=== PATIENT | male | born 1960 | race Caucasian/White ===

== ENCOUNTER 2018-12-30 03:27 | Observation (INO) | payer OTHER, SELFPAY ==
[2018-12-30] VITALS (17 sets, daily range): BP systolic 114–158; BP diastolic 80–103; PULSE 76–157; RESP 15–28; TEMP 36.5–36.9; O2SAT 92–98; BMI 45.7; BMI 45.3; BMI 45.4
--- NOTE | 2018-12-30 03:30 | EKG12_ITS ---
Test Reason : CP Blood Pressure : / mmHG Vent. Rate : 146 BPM Atrial Rate : 156 BPM P-R Int : 000 ms QRS Dur : 096 ms QT Int : 312 ms P-R-T Axes : 000 -49 073 degrees QTc Int : 486 ms Atrial fibrillation with rapid ventricular response Incomplete right bundle branch block Left anterior fascicular block Minimal voltage criteria for LVH, may be normal variant Abnormal ECG Confirmed by HIRA ESPINOZA, CRISTIAN ([id number]), editor greeting card MARQUIS SNOW ([id number]) on 01/02/2019 9:08:11 AM Referred By: Craig Anaya Confirmed By:CRISTIAN INIGUEZ MD
--- NOTE | 2018-12-30 03:30 | RAD_ITS ---
HISTORY: CPChest PainRAD - Chest EXAM: XR Chest 1 View COMPARISON: None FINDINGS: LINES/DEVICES: None. LUNGS: No consolidation, edema or effusion. No pneumothorax. MEDIASTINUM AND CARDIOVASCULAR STRUCTURES: Cardiac silhouette not enlarged. Central airways and mediastinal contour are unremarkable. BONES AND SOFT TISSUES: Unremarkable. RAD/Chest 1 View (Portable) IMPRESSION: No radiographic evidence of acute cardiopulmonary disease. at 0413 Reported and signed by: Arjun Rosas MD Electronically Signed: Arjun Rosas, at 4:12 EDT Tel , Service support ,
[2018-12-30] MEDS: dilTIAZem 25 MG/5 ML Vial IV BOLUS (03:39)
--- NOTE | 2018-12-30 03:40 | ED.VISSUMM ---
- ER Visit Summary Date of Service: 12/30/18 Chief Complaint: Chest pain and accelerated heart rate History of Present Illness: The patient is a 58 M states he has a prior history of a hole in his heart. No prior [place]. No stents. No history of dysrhythmia. Patient states he was doing fine yesterday. He went to bed early this morning and around 245 he woke up with chest pain. Says it feels like a heaviness or someone standing on his chest. Also accelerated heart rate. No prior history of any dysrhythmia. No prior PE or DVT. Denies any hemoptysis. Denies any recent exertional chest pain. Physical Examination: Middle-aged male. Diaphoretic. Initial blood pressure 158/103. Heart rate 149. On the monitor is A. fib RVR. HEENT exam unremarkable. Neck nontender no JVD. Lungs clear to auscultation bilaterally. Heart irregularly irregular rate about 149. Chest wall nontender. Abdomen obese but soft. Nontender, nondistended normal bowel sounds without peritoneal signs. Patient is moving all 4 extremities. He has equal symmetrical radial pulses. Calves are nontender without edema or cords. Neurologically is awake alert with no focal motor deficits. Test Results: Portable 1 view chest x-ray showed no acute abnormality read both myself and radiologist. EKG should new onset A. fib RVR with rate of 146. CBC showed a white count 10. Hemoglobin 17. No bands. Electrodes are normal. PT/INR normal. Troponin normal. Emergency Department Course and Treatment: Patient with new onset A. fib RVR with chest pain. Will receive p.o. aspirin. IV Cardizem bolus. He will need to be admitted to the hospital. Treatment Plan: Patient initially was given a Cardizem bolus 25 mg. His heart rate came down around 100 and dropped to 80. However is now increasing back the other way and be started on a Cardizem drip. I spoken him the hospitalist he will be admitted. Disposition: Admission Impression: Acute new onset A. fib with RVR Acute chest pain This note was generated with [employer] dictation software. It may contain incorrect words, spelling, and punctuation that were not noted in review of the chart prior to signing ED Disposition - Plan for ED Patient: Referrals: NOT,DEFINED [NON-STAFF] -
[2018-12-30] MEDS: Aspirin 81 MG TAB.CHEW 324 MG PO (03:43)
--- NOTE | 2018-12-30 03:43 | ED.DCSUM_ITS ---
- ER Visit Summary Date of Service: 12/30/18 Chief Complaint: Chest pain and accelerated heart rate History of Present Illness: The patient is a 58 M states he has a prior history of a hole in his heart. No prior [place]. No stents. No history of dysrhythmia. Patient states he was doing fine yesterday. He went to bed early this morning and around 245 he woke up with chest pain. Says it feels like a heaviness or someone standing on his chest. Also accelerated heart rate. No prior history of any dysrhythmia. No prior PE or DVT. Denies any hemoptysis. Denies any recent exertional chest pain. Physical Examination: Middle-aged male. Diaphoretic. Initial blood pressure 158/103. Heart rate 149. On the monitor is A. fib RVR. HEENT exam unremarkable. Neck nontender no JVD. Lungs clear to auscultation bilaterally. Heart irregularly irregular rate about 149. Chest wall nontender. Abdomen obese but soft. Nontender, nondistended normal bowel sounds without peritoneal signs. Patient is moving all 4 extremities. He has equal symmetrical radial pulses. Calves are nontender without edema or cords. Neurologically is awake alert with no focal motor deficits. Test Results: Portable 1 view chest x-ray showed no acute abnormality read both myself and radiologist. EKG should new onset A. fib RVR with rate of 146. CBC showed a white count 10. Hemoglobin 17. No bands. Electrodes are normal. PT/INR normal. Troponin normal. Emergency Department Course and Treatment: Patient with new onset A. fib RVR with chest pain. Will receive p.o. aspirin. IV Cardizem bolus. He will need to be admitted to the hospital. Treatment Plan: Patient initially was given a Cardizem bolus 25 mg. His heart rate came down around 100 and dropped to 80. However is now increasing back the other way and be started on a Cardizem drip. I spoken him the hospitalist he will be admitted. Disposition: Admission Impression: Acute new onset A. fib with RVR Acute chest pain This note was generated with [employer] dictation software. It may contain incorrect words, spelling, and punctuation that were not noted in review of the chart prior to signing ED Disposition - Plan for ED Patient: Referrals: NOT,DEFINED [NON-STAFF] -
[2018-12-30 03:45] LABS: Absolute Lymphocyte Count 3.12 X10^3/ul (0.83-4.51); Absolute Neutrophil Count 5.9 X10^3/uL (2.0-7.7); Basophil# 0.07 X10^3/uL; Basophil% 0.7 % (0-1); Eosinophil# 0.38 X10^3/uL; Eosinophils% 3.6 % (0-5); Hematocrit 50.7 % (40-54); Hemoglobin 17.4 g/dl (13.0-16.5); Lymphocyte # 3.12 X10^3/ul (4.0); Lymphocyte % 29.9 % (19-41); Mean Corp Hgb Conc 34.3 g/gl (32-36); Mean Corpuscular Hgb 28.9 pg (27.0-32.0); Mean Corpuscular Volume 84.1 fL (80-94); Mean Platelet Vol. 10.3 fl (6.2-12.0); Monocyte# 0.95 X10^3/uL; Monocyte% 9.1 % (0-10); Neutrophil # 5.86 X10^3/uL (2.7-7.7); Neutrophil % 56.1 % (47-70); Platelet Count 190 K/mm3 (150-450); RBC Distribution Width CV 14.5 % (11.6-14.6); RBC Distribution Width SD 44.3 fl (35.1-43.9); Red Blood Count 6.03 M/mm3 (4.6-6.2); White Blood Count 10.4 K/mm3 (4.4-11.0)
[2018-12-30 03:47] LABS: POSITIVE COUNT NO; POSITIVE DIFFERENTIAL NO; POSITIVE MORPHOLOGY NO
[2018-12-30 03:53] LABS: Prothrombin Time (Protime)PT. 13.1 SECONDS (11.7-14.9)
[2018-12-30 04:35] LABS: BUN 18 mg/dL (7-18); EST Glomerular Filtration Rate 51 mL/min (>60); Est Glom Filt Rate - Afr Amer 62 mL/min (>60); Glucose 151 mg/dL (74-106)
[2018-12-30 04:36] LABS: Anion Gap 8 (5-15); Chloride 110 mmol/L (98-107); Potassium 3.8 mmol/L (3.5-5.1); Sodium Level 143 mmol/L (136-145)
--- NOTE | 2018-12-30 05:41 | HP.PCM_ITS ---
Problem List (1) Atrial fibrillation with RVR Status: Acute (2) Rheumatic heart disease, unspecified Status: Chronic (3) Morbid obesity Status: Chronic (4) Atypical chest pain Status: Acute History of Present Illness Date of Admission: 12/30/18 Chief Complaint: Woke up with chest pain The patient is a 58 year old M with history of rheumatic disease and hole in the heart possible ASD/PFO came to ED with sudden onset of chest pain that woke him up. He woke up around 230 with pressure on the chest and feeling like suffocation, diaphoresis. He felt like heavy weight put on the chest. He denies any fast heart rate or palpitation or arrhythmia. No prior history of dysrhythmia/NH or cardiac stent. He states he saw Dr. Hadley and cardiac cath and he told him he has a PFO after he passed out one time. There is no cardiac work-up or cath report in our EMR or Dr. Hadley note. In ED, [is found to have a heart rate 157/min, blood pressure 158/103 and tachypnea. Patient was given Cardizem 20 mg IV bolus and 25 mg IV bolus and heart rate slowed down in 110s. Also had aspirin 324 mg. In basic blood work, H&H 17.4/50.7. BUN/creatinine 18/1.5. Glucose 151. EKG shows A. fib at 141 bpm. LAD with left anterior fascicular block and EKG sign of mild LVH. Past Medical History Past Medical History (Chronic Problems): Chronic Problems Rheumatic heart disease, unspecified (Chronic) Morbid obesity (Chronic) Allergies No Known Allergies Allergy (Verified 12/30/18 03:46) Home Medications: Ambulatory Orders Medication Instructions Recorded NK 12/30/18 Smoking Status: Never smoker - *Family History Paternal History Items: - - Denies first-degree family relative with NH or heart disease. Review of Systems Constitutional: Reports: - - Morbid obesity. Denies: Chills, Fever, Weight Change HEENT: Denies: Head Aches, Sinus Congestion, Sinus Drainage Cardiovascular: Reports: Chest Pain, Chest Pressure. Denies: Palpitations Respiratory: Reports: Shortness of Breath. Denies: Cough, Shortness of breath at rest, Sputum production Gastrointestinal: Denies: Abdominal Pain, Nausea, Vomiting Genitourinary: Denies: Dysuria, Frequency, Hesitancy Musculoskeletal: Denies: Joint Pain, Joint Tenderness Skin: Denies: Rash, Wounds Neurological: Denies: Numbness, Tingling, Focal weakness Psychiatric: Denies: Anxiety, Depression, Homicidal Ideations, Suicidal Ideations Hematologic/ Lymphatic: Denies: Easy Bruising, Easy Bleeding VTE Information - Inpt Only VTE Present on Admission: No VTE Mechan Device Prophylaxis: None VTE Pharm Prophylaxis ordered?: Yes Patient Problems: Active and Suspected Problems Atrial fibrillation with RVR (Acute) Atypical chest pain (Acute) - Physical Exam General: Alert, Oriented x3, Cooperative HEENT: Atraumatic, PERRLA, EOMI, Normocephalic Oral: - - Base of tongue and deep pharyngeal structures not visible. Neck: Supple, No JVD, Negative Carotid Bruits Lungs: Clear to auscultation, No rhonchi, No wheeze, No rales, Diminished Cardiovascular: Normal S1, Normal S2, No murmurs, Irregular Rate, Tachycardic Abdomen: Bowel Sounds Present, Soft, Non Tender, Non-Distended Extremities: No edema, Capillary Refill Less than 3 Seconds Skin: No rashes, No breakdown Musculoskeletal: No Tenderness to Palpation of Joints or Extremities, Arthritic Changes Lymphatic: No Cervical, Supraclavicular, or Inguinal Adenopathy Neurological: Cranial nerves II-XII grossly intact, Deep Tendon Reflexes 2+/4 and Symmetrical, Neuro grossly intact Psych/Mental Status: Normal Affect, Appropriate Vital Signs Temp Pulse Resp BP Pulse Ox 97.9 F 149 H 26 H 158/103 H 96 12/30/18 03:29 12/30/18 03:32 12/30/18 03:32 12/30/18 03:29 12/30/18 03:32 Oxygen Flow Rate (L/min) 2 Oxygen Delivery Method Nasal Cannula Weight: 337 lb 4.916 oz Body Mass Index (BMI) 45.7 Laboratory Tests Past 24 Hrs 12/30/18 12/30/18 12/30/18 03:35 03:35 03:35 WBC 10.4 RBC 6.03 Hgb 17.4 H Hct 50.7 MCV 84.1 MCH 28.9 MCHC 34.3 RDW 14.5 RDW Differential 44.3 H Plt Count 190 MPV 10.3 Immature Gran % (Auto) 0.600 Neut % (Auto) 56.1 Lymph % (Auto) 29.9 [place] % (Auto) 9.1 Eos % (Auto) 3.6 Baso % (Auto) 0.7 Absolute Neuts (auto) 5.9 Absolute Lymphs (auto) 3.12 Total Counted Not Reportable PT 13.1 INR 1.0 Sodium 143 Potassium 3.8 Chloride 110 H Carbon Dioxide 25.0 Anion Gap 8 BUN 18 Creatinine 1.50 H Estim Creat Clear Calc 58.20 Est GFR (MDRD) Af Amer 62 Est GFR (MDRD) Non-Af 51 L BUN/Creatinine Ratio 12.0 Glucose 151 H Calcium 9.0 Troponin I < 0.015 Assessment/Plan All Active Problems Atrial fibrillation with RVR (Acute) Atypical chest pain (Acute) The patient is a 58 year old M with history of rheumatic disease and hole in the heart possible ASD/PFO came to ED with sudden onset of chest pain/chest heaviness and suffocation and diaphoresis and found to be new onset A. fib with RVR at 150/min. EKG shows A. fib at 141 bpm. LAD with left anterior fascicular block and EKG sign of mild LVH. 1. New onset A. fib with RVR: Patient was given Cardizem 20 mg IV bolus and 25 mg IV bolus and heart rate slowed down in 110s. Also had aspirin 324 mg. Patient is started on Cardizem drip. Metoprolol 5 mg IV and then metoprolol 25 mg twice daily. Titrate the drip to keep heart rate less than 90/min. 2D echo ordered. Cycle cardiac enzymes. Started on Lovenox 1 mg/kg body weight every 12 hourly. 2. Elevated creatinine 1.5: It may be prerenal but BUN is normal 18. 3. Elevated hematocrit, unclear acute or chronic: H&H 17.4/50.7 not clear acute or chronic as the patient has not had previous labs in our system. There is probability of patient may have obstructive sleep apnea but patient denies it. 4. Elevated glucose: A1c tomorrow a.m. Accu-Chek before meals and at bedtime curriculum sliding scale. Patient denies diabetes mellitus. 5. History of rheumatic heart disease and hole in the heart possible ASD/PFO: 2D echo is ordered. Morbid obesity: BMI is 45.7. DVT prophylaxis: On Lovenox daily dose. Code Visit Inpatient E&M: 41331 Init Hosp L3
--- NOTE | 2018-12-30 05:58 | ED.RN ---
0354: HEART RATE UPPER 80'S. CARDIZEM 20 MG IVP HELD AT THIS TIME PER DR ARRIOLA
[2018-12-30] MEDS: Metoprolol Tartrate 5 MG/5 ML Vial IV (06:06)
[2018-12-30] MEDS: Metoprolol Tartrate 25 MG Tablet PO ×2 (06:51→22:10)
[2018-12-30] MEDS: 0.9% Normal Saline 1,000 ML 100 ML IV ×2 (06:51→17:46)
[2018-12-30] MEDS: Enoxaparin 150 MG/ML Syringe SC ×2 (06:51→22:10)
[2018-12-30 07:41] LABS: Bedside Glucose 143 mg/dL (70-110)
[2018-12-30 09:18] LABS: Magnesium 2.2 mg/dL (1.6-2.6)
--- NOTE | 2018-12-30 10:03 | EKG12_ITS ---
Test Reason : RHYTHM CHANGE Blood Pressure : / mmHG Vent. Rate : 096 BPM Atrial Rate : 127 BPM P-R Int : 000 ms QRS Dur : 090 ms QT Int : 366 ms P-R-T Axes : 000 -42 006 degrees QTc Int : 462 ms Atrial fibrillation Left axis deviation Abnormal ECG When compared with ECG of 30-DEC-2018 03:31, MANUAL COMPARISON REQUIRED, DATA IS UNCONFIRMED Confirmed by LETTY ESPINOZA, BEVERLY ([id number]), news assignment editor HOAWRD BLUM ([id number]) on 01/07/2019 2:42:02 PM Referred By: Craig Anaya Confirmed By:BEVERLY SAENZ MD
[2018-12-30 10:27] LABS: Absolute Lymphocyte Count 3.44 X10^3/ul (0.83-4.51); Basophil# 0.06 X10^3/uL; Basophil% 0.5 % (0-1); Eosinophils% 3.6 % (0-5); Hematocrit 48.4 % (40-54); Hemoglobin 16.5 g/dl (13.0-16.5); Lymphocyte # 3.44 X10^3/ul (4.0); Lymphocyte % 31.3 % (19-41); Mean Corp Hgb Conc 34.1 g/gl (32-36); Mean Corpuscular Hgb 29.3 pg (27.0-32.0); Mean Platelet Vol. 10.5 fl (6.2-12.0); Monocyte# 1.08 X10^3/uL; Monocyte% 9.8 % (0-10); Neutrophil # 5.98 X10^3/uL (2.7-7.7); Neutrophil % 54.4 % (47-70); Platelet Count 190 K/mm3 (150-450); RBC Distribution Width CV 14.1 % (11.6-14.6); RBC Distribution Width SD 43.8 fl (35.1-43.9); Red Blood Count 5.63 M/mm3 (4.6-6.2)
[2018-12-30 10:29] LABS: POSITIVE COUNT NO; POSITIVE DIFFERENTIAL NO; POSITIVE MORPHOLOGY NO
[2018-12-30 10:38] LABS: Anion Gap 8 (5-15); BUN 19 mg/dL (7-18); BUN/Creat Ratio 14.7 RATIO (10-20); Calcium,Total 8.3 mg/dL (8.5-10.1); Chloride 109 mmol/L (98-107); Creatinine, Serum 1.29 mg/dL (0.70-1.30); EST Glomerular Filtration Rate 61 mL/min (>60); Est Glom Filt Rate - Afr Amer 73 mL/min (>60); Estimated Creatinine Clearance 67.67 ml/min; Glucose 117 mg/dL (74-106); Potassium 4.1 mmol/L (3.5-5.1); Sodium Level 141 mmol/L (136-145)
--- NOTE | 2018-12-30 11:36 | CON.PCM_ITS ---
Problem List (1) Atrial fibrillation with RVR Status: Acute Reason for Consult Date of Consultation: 12/30/18 History of Present Illness: The patient is a 58 year old M who has a history of rheumatic fever as a child. He presented to the emergency room after a week he woke up earlier this morning from sleep with anterior chest pressure with diaphoresis. According to him, it felt as if somebody was sitting on his chest. Denied any palpitations. In the emergency room, he was noted to be in atrial fibrillation with rapid ventricular response. Per patient, his discomfort relieved with medications in the emergency room. He has been completely asymptomatic since then. Please note that in the emergency room he received IV diltiazem bolus and then was started on infusion. Patient denies any previous history of angina pectoris. Denies any chest pain or shortness of breath either at rest or with exertion. Denies any palpitations. No history of syncope or presyncope. No lightheadedness or dizziness. No history of CVA or TIA. Patient gives history of occasionally waking up at night feeling short of breath. Denies any orthopnea. Per the patient, his thinks that he has sleep apnea. 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 Hadley told him in the year 1999 that he had hole in the heart.[] Past Medical History Allergies/Adverse Reactions: Allergies No Known Allergies Allergy (Verified 12/30/18 03:46) Home Medications: Ambulatory Orders Medication Instructions Recorded NK 12/30/18 Past Medical History (Chronic Problems): Chronic Problems Rheumatic heart disease, unspecified (Chronic) Morbid obesity (Chronic) - *Family History Paternal History Items: - - Denies first-degree family relative with [place] or heart disease. Smoking Status: Never smoker Review of Systems - Review of Systems General: Reports: Normal Appetite. Denies: Fever, Chills HEENT: Denies: Vision Change, Head Aches Cardiovascular: Reports: Chest Pressure, Chest Tightness, Shortness of Breath at Rest, PND. Denies: Orthopnea, Peripheral Edema, Palpitations, Lightheadedness, Dizziness, Near Syncope, Syncope Respiratory: Denies: Cough Gastrointestinal: Denies: Abdominal Discomfort, Jaundice, Nausea, Emesis, Hematemesis Neurological: Denies: History of TIA, History of CVA Endocrine: Denies: Heat Intolerance, Cold Intolerance Hematologic/ Lymphatic: Denies: Anemia, Easy Brusing, Easy Bleeding Subjectve: Comfortable. Morbidly obese. Objective: Vital Signs Temp Pulse Resp BP Pulse Ox 97.7 F L 105 H 18 115/83 H 92 12/30/18 06:34 12/30/18 07:07 12/30/18 06:34 12/30/18 06:34 12/30/18 09:09 Oxygen Flow Rate (L/min) 2 Oxygen Delivery Method Room Air Weight: 151.7 kg Body Mass Index (BMI) 45.3 General: Awake, Alert, Oriented x 3, Cooperative, No Acute Distress, Obese HEENT: Atraumatic, Normocephalic Oral: Moist Mucosa Neck: Supple, No JVD Lungs: Clear to auscultation Cardiovascular: Irregular Rhythm, Normal S1, Normal S2, No Rubs Vascular: No Carotid Bruits Abdomen: Soft, Obese Extremities: Bilateral Edema +1 Neurological: No Focal Motor or Sensory Deficit, CN II-XII Intact Psych/Mental Status: Appropriate 12/30/18 03:35: WBC 10.4, RBC 6.03, Hgb 17.4 H, Hct 50.7, MCV 84.1, MCH 28.9, MCHC 34.3, RDW 14.5, RDW Differential 44.3 H, Plt Count 190, MPV 10.3, Immature Gran % (Auto) 0.600, Neut % (Auto) 56.1, Lymph % (Auto) 29.9, [place] % (Auto) 9.1, Eos % (Auto) 3.6, Baso % (Auto) 0.7, Absolute Neuts (auto) 5.9, Total Counted Not Reportable 12/30/18 03:35: Sodium 143, Potassium 3.8, Chloride 110 H, Carbon Dioxide 25.0, Anion Gap 8, BUN 18, Creatinine 1.50 H, Est GFR (MDRD) Af Amer 62, Est GFR (MDRD) Non-Af 51 L, BUN/Creatinine Ratio 12.0, Glucose 151 H, Calcium 9.0, Troponin I < 0.015 12/30/18 03:35: PT 13.1, INR 1.0 12/30/18 06:25: WBC 11.0, RBC 5.63, Hgb 16.5, Hct 48.4, MCV 86.0, MCH 29.3, MCHC 34.1, RDW 14.1, RDW Differential 43.8, Plt Count 190, MPV 10.5, Immature Gran % (Auto) 0.400, Neut % (Auto) 54.4, Lymph % (Auto) 31.3, [place] % (Auto) 9.8, Eos % (Auto) 3.6, Baso % (Auto) 0.5, Absolute Neuts (auto) 6.0, Total Counted Not Reportable 12/30/18 06:25: Troponin I 0.061 H 12/30/18 06:25: Magnesium 2.2 12/30/18 09:40: Sodium 141, Potassium 4.1, Chloride 109 H, Carbon Dioxide 24.0, Anion Gap 8, BUN 19 H, Creatinine 1.29, Est GFR (MDRD) Af Amer 73, Est GFR (MDRD) Non-Af 61, BUN/Creatinine Ratio 14.7, Glucose 117 H, Calcium 8.3 L 12/30/18 09:40: Troponin I 0.126 H Rhythm: Atrial fibrillation with controlled ventricular response. EKG: First EKG showed atrial fibrillation with rapid ventricular response at 146 bpm. Left anterior fascicular block was noted. Nonspecific T wave changes. Second EKG shows atrial fibrillation with controlled ventricular response. Nonspecific ST-T wave changes. ECHO: Stress Test: Cardiac Cath: PCI: CT Surgery: Holter monitor: EPS: PPM: CXR: Chest CT Scan: Assessment/Plan 1. New onset atrial fibrillation. Ventricular rate controlled with diltiazem infusion. Will switch to p.o. Started on beta-blockers. Already anticoagulated with Lovenox. Presently his [id number] score is calculated at 0. Started on aspirin. Check 2D echocardiogram with Doppler. Further recommendations regarding thromboembolic risk once the echocardiogram is done. 2. Mildly/indeterminant troponins. Patient woke up with chest tightness. Check another set of troponin. If it trends upwards further, then will consider cardiac catheterization otherwise stress test with Cardiolite to evaluate for ischemia. Patient likely has underlying coronary artery disease. 3. Check d-dimer. 4. History of rheumatic fever as a child. 5. Morbid obesity. 6. Likely sleep apnea. Consider work-up as outpatient. 7. History of hole in the heart. Check 2D echocardiogram with Doppler.
[2018-12-30 11:50] LABS: D-Dimer Quantitative (DVT/PE) < 0.27 FEU/ug/m (0.27-0.49)
--- NOTE | 2018-12-30 12:15 | PN_ITS ---
<Laureen Estrada - Last Filed: 12/30/18 12:15> Patient Problems: Active and Suspected Problems Atrial fibrillation with RVR (Acute) Atypical chest pain (Acute) Subjective: Patient seen and examined. Denies further chest pressure. Denies shortness of breath, palpitations. - Physical Exam General: Alert, Oriented x3, Cooperative HEENT: Atraumatic, PERRLA, EOMI, Normocephalic Neck: Supple, No JVD, Negative Carotid Bruits Lungs: Clear to auscultation, Diminished Cardiovascular: - - Atrial fibrillation, rate controlled. Abdomen: Bowel Sounds Present, Soft, Non Tender, Non-Distended, Obese Extremities: No clubbing, No cyanosis, No edema, Capillary Refill Less than 3 Seconds Skin: No rashes, No breakdown Musculoskeletal: No Tenderness to Palpation of Joints or Extremities Neurological: Cranial nerves II-XII grossly intact, Neuro grossly intact Psych/Mental Status: Normal Affect, Appropriate Vital Signs Temp Pulse Resp BP Pulse Ox 97.7 F L 105 H 18 115/83 H 92 12/30/18 06:34 12/30/18 07:07 12/30/18 06:34 12/30/18 06:34 12/30/18 09:09 Oxygen Flow Rate (L/min) 2 Oxygen Delivery Method Room Air Weight: 334 lb 7.06 oz Body Mass Index (BMI) 45.3 Laboratory Tests Past 24 Hrs 12/30/18 12/30/18 12/30/18 03:35 03:35 03:35 WBC 10.4 RBC 6.03 Hgb 17.4 H Hct 50.7 MCV 84.1 MCH 28.9 MCHC 34.3 RDW 14.5 RDW Differential 44.3 H Plt Count 190 MPV 10.3 Immature Gran % (Auto) 0.600 Neut % (Auto) 56.1 Lymph % (Auto) 29.9 Schley % (Auto) 9.1 Eos % (Auto) 3.6 Baso % (Auto) 0.7 Absolute Neuts (auto) 5.9 Absolute Lymphs (auto) 3.12 Total Counted Not Reportable PT 13.1 INR 1.0 D-Dimer Quant (PE/DVT) Sodium 143 Potassium 3.8 Chloride 110 H Carbon Dioxide 25.0 Anion Gap 8 BUN 18 Creatinine 1.50 H Estim Creat Clear Calc 58.20 Est GFR (MDRD) Af Amer 62 Est GFR (MDRD) Non-Af 51 L BUN/Creatinine Ratio 12.0 Glucose 151 H Calcium 9.0 Magnesium Troponin I < 0.015 12/30/18 12/30/18 12/30/18 03:35 06:25 06:25 WBC 11.0 RBC 5.63 Hgb 16.5 Hct 48.4 MCV 86.0 MCH 29.3 MCHC 34.1 RDW 14.1 RDW Differential 43.8 Plt Count 190 MPV 10.5 Immature Gran % (Auto) 0.400 Neut % (Auto) 54.4 Lymph % (Auto) 31.3 Schley % (Auto) 9.8 Eos % (Auto) 3.6 Baso % (Auto) 0.5 Absolute Neuts (auto) 6.0 Absolute Lymphs (auto) 3.44 Total Counted Not Reportable PT INR D-Dimer Quant (PE/DVT) < 0.27 L Sodium Potassium Chloride Carbon Dioxide Anion Gap BUN Creatinine Estim Creat Clear Calc Est GFR (MDRD) Af Amer Est GFR (MDRD) Non-Af BUN/Creatinine Ratio Glucose Calcium Magnesium Troponin I 0.061 H 12/30/18 12/30/18 12/30/18 06:25 09:40 09:40 WBC RBC Hgb Hct MCV MCH MCHC RDW RDW Differential Plt Count MPV Immature Gran % (Auto) Neut % (Auto) Lymph % (Auto) Schley % (Auto) Eos % (Auto) Baso % (Auto) Absolute Neuts (auto) Absolute Lymphs (auto) Total Counted PT INR D-Dimer Quant (PE/DVT) Sodium 141 Potassium 4.1 Chloride 109 H Carbon Dioxide 24.0 Anion Gap 8 BUN 19 H Creatinine 1.29 Estim Creat Clear Calc 67.67 Est GFR (MDRD) Af Amer 73 Est GFR (MDRD) Non-Af 61 BUN/Creatinine Ratio 14.7 Glucose 117 H Calcium 8.3 L Magnesium 2.2 Troponin I 0.126 H POC Glucose 12/30/18 06:48 POC Glucose 143 H Medical Necessity - Tobacco Use Smoking Status: Never smoker Assessment/Plan All Active Problems Atrial fibrillation with RVR (Acute) Atypical chest pain (Acute) 1. New onset atrial fibrillation with RVR-remains in A. fib, rate controlled. Troponin increasing. Cardiology consulted. Continue therapeutic Lovenox. Echocardiogram ordered, pending. Initiated on oral Cardizem and metoprolol. Magnesium normal. TSH pending. 2. Elevated troponin-possible cardiac catheterization if troponin continues to trend upwards. Cardiology consulted. Continue therapeutic Lovenox, beta- teddy. Check lipid panel. 3. Elevated creatinine-unknown baseline. Resolved with IV fluids, suspect secondary to mild dehydration. 4. Hole in heart/history of rheumatic fever as child-reports he follows with Dr. Hadley and has had an echocardiogram in the past. No records in our system. Obtain echocardiogram. Cardiology following as noted above. 5. Morbid obesity-encourage diet lifestyle modifications. Nutrition consult. 6. Suspected PHILLIP-recommend outpatient follow-up, sleep study. 7. Elevated glucose check hemoglobin A 1C.- DVT prophylaxis-Lovenox This patient was seen by EUNICE Holland under the supervision of Dr. Ayala. <Ning Ayala E - Last Filed: 12/30/18 13:17> - Physical Exam Vital Signs Temp Pulse Resp BP Pulse Ox 98.2 F 87 18 119/93 H 96 12/30/18 10:00 12/30/18 10:00 12/30/18 10:00 12/30/18 10:00 12/30/18 10:00 Oxygen Flow Rate (L/min) 2 Oxygen Delivery Method Room Air Weight: 334 lb 7.06 oz Body Mass Index (BMI) 45.3 Intake and Output for Last 24 Hours 12/28/18 12/29/18 12/30/18 23:59 23:59 23:59 Intake Total 963 / 963 Balance 963 / 963 Laboratory Tests Past 24 Hrs 12/30/18 12/30/18 12/30/18 03:35 03:35 03:35 WBC 10.4 RBC 6.03 Hgb 17.4 H Hct 50.7 MCV 84.1 MCH 28.9 MCHC 34.3 RDW 14.5 RDW Differential 44.3 H Plt Count 190 MPV 10.3 Immature Gran % (Auto) 0.600 Neut % (Auto) 56.1 Lymph % (Auto) 29.9 Schley % (Auto) 9.1 Eos % (Auto) 3.6 Baso % (Auto) 0.7 Absolute Neuts (auto) 5.9 Absolute Lymphs (auto) 3.12 Total Counted Not Reportable PT 13.1 INR 1.0 D-Dimer Quant (PE/DVT) Sodium 143 Potassium 3.8 Chloride 110 H Carbon Dioxide 25.0 Anion Gap 8 BUN 18 Creatinine 1.50 H Estim Creat Clear Calc 58.20 Est GFR (MDRD) Af Amer 62 Est GFR (MDRD) Non-Af 51 L BUN/Creatinine Ratio 12.0 Glucose 151 H Hemoglobin A1c Calcium 9.0 Magnesium Troponin I < 0.015 Triglycerides Cholesterol LDL Cholesterol VLDL Cholesterol HDL Cholesterol 12/30/18 12/30/18 12/30/18 03:35 03:35 03:35 WBC RBC Hgb Hct MCV MCH MCHC RDW RDW Differential Plt Count MPV Immature Gran % (Auto) Neut % (Auto) Lymph % (Auto) Schley % (Auto) Eos % (Auto) Baso % (Auto) Absolute Neuts (auto) Absolute Lymphs (auto) Total Counted PT INR D-Dimer Quant (PE/DVT) < 0.27 L Sodium Potassium Chloride Carbon Dioxide Anion Gap BUN Creatinine Estim Creat Clear Calc Est GFR (MDRD) Af Amer Est GFR (MDRD) Non-Af BUN/Creatinine Ratio Glucose Hemoglobin A1c 5.7 Calcium Magnesium Troponin I Triglycerides 562 H Cholesterol 182 LDL Cholesterol TNP VLDL Cholesterol TNP HDL Cholesterol 22 L 12/30/18 12/30/18 12/30/18 06:25 06:25 06:25 WBC 11.0 RBC 5.63 Hgb 16.5 Hct 48.4 MCV 86.0 MCH 29.3 MCHC 34.1 RDW 14.1 RDW Differential 43.8 Plt Count 190 MPV 10.5 Immature Gran % (Auto) 0.400 Neut % (Auto) 54.4 Lymph % (Auto) 31.3 Schley % (Auto) 9.8 Eos % (Auto) 3.6 Baso % (Auto) 0.5 Absolute Neuts (auto) 6.0 Absolute Lymphs (auto) 3.44 Total Counted Not Reportable PT INR D-Dimer Quant (PE/DVT) Sodium Potassium Chloride Carbon Dioxide Anion Gap BUN Creatinine Estim Creat Clear Calc Est GFR (MDRD) Af Amer Est GFR (MDRD) Non-Af BUN/Creatinine Ratio Glucose Hemoglobin A1c Calcium Magnesium 2.2 Troponin I 0.061 H Triglycerides Cholesterol LDL Cholesterol VLDL Cholesterol HDL Cholesterol 12/30/18 12/30/18 12/30/18 09:40 09:40 12:50 WBC RBC Hgb Hct MCV MCH MCHC RDW RDW Differential Plt Count MPV Immature Gran % (Auto) Neut % (Auto) Lymph % (Auto) Schley % (Auto) Eos % (Auto) Baso % (Auto) Absolute Neuts (auto) Absolute Lymphs (auto) Total Counted PT INR D-Dimer Quant (PE/DVT) Sodium 141 Potassium 4.1 Chloride 109 H Carbon Dioxide 24.0 Anion Gap 8 BUN 19 H Creatinine 1.29 Estim Creat Clear Calc 67.67 Est GFR (MDRD) Af Amer 73 Est GFR (MDRD) Non-Af 61 BUN/Creatinine Ratio 14.7 Glucose 117 H Hemoglobin A1c Calcium 8.3 L Magnesium Troponin I 0.126 H Pending Triglycerides Cholesterol LDL Cholesterol VLDL Cholesterol HDL Cholesterol POC Glucose 12/30/18 12/30/18 12:29 06:48 POC Glucose 97 143 H Assessment/Plan Hospitalist note: I am seeing this patient in conjunction with Laureen Estrada. I independently seen and examined the patient. Progress note above, laboratory data and imaging studies reviewed and I concur with the above work-up and treatment plan. Patient seen and examined today. He denies any more chest pain. He denied palpitation, shortness of breath, dizziness or lightheadedness. He remained in A. fib, heart rate has been around 100, blood pressure stable. - Physical Exam General: Alert, Oriented x3, Cooperative, No apparent distress. HEENT: Atraumatic, PERRLA, EOMI. Neck: Supple, No JVD, Negative Carotid Bruits, Trachea Midline, Thyroid Normal. Lungs: Clear to auscultation, Normal air movement, No rhonchi, No wheeze, No rales. Cardiovascular: Irregular rhythm, Normal S1, Normal S2, PMI Normal, tachycardia. Abdomen: Bowel Sounds Present, Soft, Non Tender, Non-Distended, No Hepato-splenomegaly. Extremities: No clubbing, No cyanosis, No edema Skin: No rashes, No breakdown Neurological: Neuro grossly intact Assessment and plan: #1 new onset A. fib with RVR: Patient received IV Cardizem bolus, rate improved. Troponin was normal but started to go up. Patient has no more chest pain. He is on subcu therapeutic Lovenox. Started on oral Cardizem and metoprolol for rate control. 2D echocardiogram ordered. Cardiology consulted. #2 indeterminate troponin: Without acute ischemic changes on EKG. Cardiology consulted, patient may need to go for cardiac catheterization. #3 other chronic medical problems: Stable, continue current medications as above. This note was generated with [employer] dictation software. It may contain incorrect words, spelling, and punctuation that were not noted in checking the note before signing.
[2018-12-30 12:36] LABS: Bedside Glucose 97 mg/dL (70-110)
[2018-12-30 12:44] LABS: Cholesterol 182 mg/dL (200); High Density Lipoprotein 22 mg/dL; Triglycerides 562 mg/dL
[2018-12-30 12:55] LABS: Hemoglobin A1c 5.7 % (4.2-6.3)
[2018-12-30] MEDS: dilTIAZem 30 MG Tablet PO ×3 (13:06→23:50)
[2018-12-30 18:06] LABS: Bedside Glucose 142 mg/dL (70-110)
[2018-12-30 22:26] LABS: Bedside Glucose 100 mg/dL (70-110)
[2018-12-31] VITALS (8 sets, daily range): BP systolic 128–159; BP diastolic 90–99; PULSE 64–100; RESP 17–18; TEMP 36.4–36.7; O2SAT 94–99
--- NOTE | 2018-12-31 05:55 | ECHOD_ITS ---
Reason For Study: A. fib Procedure This was a 2D Doppler, Color Flow transthoracic echocardiogram. Exam performed portable in patient room. Left Ventricle Normal LV size. Mild concentric left ventricular hypertrophy. Left ventricular systolic function is normal. The estimated ejection fraction is 60 %. Stage 2 diastolic dysfunction. No regional wall motion abnormalities noted. Right Ventricle Normal RV size. Normal systolic function. Atria The left atrium is mildly enlarged. Normal right atrium. Mitral Valve Normal mitral valve. Tricuspid Valve Normal tricuspid valve. Aortic Valve The aortic valve is not well visualized. Pulmonic Valve Normal pulmonic valve. Great Vessels Normal aortic root. The pulmonary artery is normal size. Normal inferior vena cava. Pericardium/Pleural No pericardial effusion. MMode/2D Measurements & Calculations LVIDd: 3.8 cm IVSd: 1.3 cm Ao root diam: 3.7 cm LVIDs: 2.1 cm LVPWd: 1.2 cm RVDd: 3.8 cm FS: 43.9 % LAV(MOD-bp): 72.2 ml LVAd ap4: 30.6 cm2 SV(MOD-sp4): 46.5 ml LAV(MOD-bp) Indexed: 27.3 ml/m2 EDV(MOD-sp4): 82.3 ml LAV(MOD-sp2): 87.0 ml EDV(sp4-el): 84.5 ml LAV(MOD-sp4): 59.9 ml LVAs ap4: 18.8 cm2 ESV(MOD-sp4): 35.8 ml ESV(sp4-el): 34.8 ml EF(MOD-sp4): 56.5 % EF(sp4-el): 58.8 % SV(sp4-el): 49.7 ml LA A4 area: 21.6 cm2 LA dimension(2D): 3.6 cm RA A4 area: 17.3 cm2 Doppler Measurements & Calculations MV E max tez: 108.0 cm/sec Lat Peak E' Tez: 8.1 cm/sec Med Peak E' Tez: 7.8 cm/sec MV A max tez: 80.5 cm/sec E/E' lat: 13.3 E/E' med: 13.9 MV E/A: 1.3 Ao V2 max: 153.2 cm/sec LV V1 max: 117.4 cm/sec PA V2 max: 109.6 cm/sec Ao max P.4 mmHg LV V1 max P.5 mmHg Interpretation Summary Normal LV size. Mild concentric left ventricular hypertrophy. Left ventricular systolic function is normal. The estimated ejection fraction is 60 %. Stage 2 diastolic dysfunction. Ordering Physician: Craig Anaya Referring Physician: Craig Anaya Performed By: Mona, Maria Luisa, RDCS
[2018-12-31] MEDS: dilTIAZem 30 MG Tablet PO ×2 (05:58→12:18)
[2018-12-31 06:29] LABS: AST(SGOT) 19 U/L (15-37); Alanine Aminotransfer ALT/SGPT 28 U/L (16-61); Albumin, Serum 3.1 g/dL (3.2-5.0); Alkaline Phosphatase 63 U/L (45-117); Anion Gap 6 (5-15); BUN 17 mg/dL (7-18); BUN/Creat Ratio 13.3 RATIO (10-20); Bilirubin, Direct 0.11 mg/dL (0.00-0.30); Calcium,Total 8.6 mg/dL (8.5-10.1); Chloride 110 mmol/L (98-107); Creatinine, Serum 1.28 mg/dL (0.70-1.30); EST Glomerular Filtration Rate 61 mL/min (>60); Est Glom Filt Rate - Afr Amer 74 mL/min (>60); Globulin 3.5 g/dL (2.2-4.2); Glucose 117 mg/dL (74-106); Potassium 4.3 mmol/L (3.5-5.1); Protein, Total 6.6 g/dL (6.4-8.2); Sodium Level 142 mmol/L (136-145); Thyroid Stim Hormone (TSH) 1.67 uIU/mL (0.358-3.74)
--- NOTE | 2018-12-31 07:22 | EKG12_ITS ---
Test Reason : RHYTHM CHANGE Blood Pressure : / mmHG Vent. Rate : 074 BPM Atrial Rate : 074 BPM P-R Int : 154 ms QRS Dur : 088 ms QT Int : 408 ms P-R-T Axes : 056 -43 031 degrees QTc Int : 452 ms Normal sinus rhythm Possible Left atrial enlargement Left axis deviation Abnormal ECG When compared with ECG of 30-DEC-2018 10:12, MANUAL COMPARISON REQUIRED, DATA IS UNCONFIRMED Confirmed by LETTY ESPINOZA, BEVERLY ([id number]), assignment desk editor HOWARD BLUM ([id number]) on 01/07/2019 2:40:59 PM Referred By: Craig Anaya Confirmed By:BEVERLY SAENZ MD
[2018-12-31] MEDS: Metoprolol Tartrate 25 MG Tablet PO (08:30)
[2018-12-31] MEDS: Aspirin E.C. 81 MG Tablet PO (08:30)
--- NOTE | 2018-12-31 12:25 | PCM.PN.CARD ---
Subjectve: No complaints. Ambulating. No chest pain or pressure. No shortness of breath. Patient spontaneously converted to normal sinus rhythm. Objective: Vital Signs Temp Pulse Resp BP Pulse Ox 97.5 F L 82 18 159/99 H 95 12/31/18 08:15 12/31/18 11:52 12/31/18 08:15 12/31/18 08:30 12/31/18 08:15 Oxygen Flow Rate (L/min) 2 Oxygen Delivery Method Room Air Weight: 151.7 kg Body Mass Index (BMI) 45.3 Intake and Output for Last 24 Hours 12/29/18 12/30/18 12/31/18 23:59 23:59 23:59 Intake Total 2023 1471.1 / 1471.1 Balance 2023 1471.1 / 1471.1 General: Healthy Appearing, Awake, Alert, Oriented x 3 Oral: Moist Mucosa Neck: Supple Lungs: Clear to auscultation Cardiovascular: Regular Rhythm, Normal S1, Normal S2 Abdomen: Bowel Sounds Present, Soft Extremities: No edema 12/30/18 03:35: Triglycerides 562 H, Cholesterol 182, LDL Cholesterol TNP, VLDL Cholesterol TNP, HDL Cholesterol 22 L 12/30/18 03:35: Hemoglobin A1c 5.7 12/30/18 12:50: Troponin I 0.135 H 12/31/18 05:05: Sodium 142, Potassium 4.3, Chloride 110 H, Carbon Dioxide 26.0, Anion Gap 6, BUN 17, Creatinine 1.28, Est GFR (MDRD) Af Amer 74, Est GFR (MDRD) Non-Af 61, BUN/Creatinine Ratio 13.3, Glucose 117 H, Calcium 8.6, Total Bilirubin 0.60, Direct Bilirubin 0.11 Rhythm: Normal sinus rhythm EKG: Normal sinus rhythm. No ischemic changes. ECHO: Stress Test: Cardiac Cath: PCI: CT Surgery: Holter monitor: EPS: PPM: CXR: Chest CT Scan: Medical Necessity - Tobacco Use Smoking Status: Never smoker Assessment/Plan 1. Transient atrial fibrillation. Spontaneously converted to normal sinus rhythm. Asymptomatic. Continue aspirin. Continue metoprolol. Increase dose. Stop diltiazem. 2. Mildly/indeterminant troponins. Patient woke up with chest tightness with his atrial fibrillation with rapid ventricular response. Likely has underlying coronary artery disease. I discussed further options with the patient regarding cardiac catheterization with coronary angiography and possible revascularization versus stress test. Patient wishes to follow-up as outpatient. Start on Plavix. Add nitrates. Continue beta-blockers. Preliminary read of the echocardiogram shows normal LV systolic function with no regional wall motion abnormality. 3. Hypertension. Increase metoprolol. Start Imdur. 4. History of rheumatic fever as a child. 5. Morbid obesity. 6. Likely sleep apnea. Consider work-up as outpatient. 7. History of hole in the heart. Await full echo report. 8. Check lipid profile. Follow-up with cardiology as outpatient in 1 week time.
[2018-12-31 12:55] LABS: Cholesterol 184 mg/dL (200); High Density Lipoprotein 25 mg/dL; Triglycerides 371 mg/dL; Very Low Density Lipoprotein 74 mg/dL (5-40)
--- NOTE | 2018-12-31 14:20 | DCINST_ITS ---
- Discharge Diagnoses Current Active Problems: Current Active and Chronic Problems Atrial fibrillation with RVR (Acute) Rheumatic heart disease, unspecified (Chronic) Morbid obesity (Chronic) Atypical chest pain (Acute) You will use the following diet at home:: Cardiac Your food should be the consistency of: Regular Your liquids should be the consistency of: Regular/Thin Discharge Activity: Return to Normal Activity Call your doctor if you observe: Fever of 101 or Higher, Shortness of breath, Chest pain Instructions: Metoprolol Tartrate Oral tablet, Diltiazem Hydrochloride Oral tablet, What Is Atrial Flutter/Atrial Fibrillation?, Discharge Instructions for Atrial Fibrillation Allergies/Adverse Reactions: Allergies No Known Allergies Allergy (Verified 12/30/18 03:46) Medications to take at Discharge Acetaminophen [Tylenol Tablet] 650 mg PO Q6H PRN PRN tablet 12/31/18 Aspirin E.C. [Ecotrin] 81 mg PO DAILY@0800 tablet 12/31/18 Clopidogrel Bisulfate [Plavix] 75 mg PO DAILY #30 tablet 12/31/18 Isosorbide Mononitrate [Imdur] 30 mg PO DAILY #30 tablet 12/31/18 Metoprolol Tartrate [Lopressor (beta teddy)] 50 mg PO BID #60 tablet 12/31/18 The following prescriptions were given: Clopidogrel Bisulfate [Plavix] 75 mg PO DAILY #30 tablet Isosorbide Mononitrate [Imdur] 30 mg PO DAILY #30 tablet Metoprolol Tartrate [Lopressor (beta teddy)] 50 mg PO BID #60 tablet Primary Care Physician: NOT,DEFINED [NON-STAFF] - Within 2 Weeks Test Results: Test results from this visit will be discussed in further detail at your follow- up appointment, if applicable. Please Follow Up With: Kamaljit Crowell MD When: 2 weeks Proposed Discharge Date: 12/31/18
--- NOTE | 2018-12-31 14:24 | DS.PCM_ITS ---
Discharge Date and Diagnosis - Problem List Patient Problems: Active and Suspected Problems Atrial fibrillation with RVR (Acute) Atypical chest pain (Acute) Date of Admission: 12/30/18 Date of Discharge: 12/31/18 - Primary Discharge Diagnosis Active and Suspected Problems Atrial fibrillation with RVR (Acute) Atypical chest pain (Acute) - Secondary Discharge Diagnosis Chronic Problems Rheumatic heart disease, unspecified (Chronic) Morbid obesity (Chronic) Hospital Course and Treatment Imaging Results: 12/31/18 05:55 Echo Complete [ECHO] AM (NON MEDS) Clinical Impression(s) from Imaging Studies Chest X-Ray 12/30/18 03:30 IMPRESSION: No radiographic evidence of acute cardiopulmonary disease. at 0413 Reported and signed by: Arjun Rosas MD Electronically Signed: Arjun Rosas, at 4:12 EDT Tel , Service support , [place], Cardiology Operations: None Procedures: None Summary of Care Provided: The patient is a 58 year old M presents with chest pain. Patient was found to be in atrial fibrillation with RVR with a heart rate of 157. Patient did receive diltiazem inventions heart rate got under control with just oral metoprolol. Patient did have some slight elevations of his troponins that peaked at 0.135. This may been due to demand mismatch with the tachycardia. Patient was seen in consultation by cardiology who made no recommendations for medications, including aspirin, clopidogrel, metoprolol and Imdur. Currently, the patient is in normal sinus rhythm. Recommend cardiology follow-up his outpatient nurse consultant, Dr. Crowell for further cardiac risk stratification was then include a stress test or left heart catheterization to be determined. [] Patient Problems: Active and Suspected Problems Atrial fibrillation with RVR (Acute) Atypical chest pain (Acute) - Physical Exam General: Alert, No apparent distress HEENT: Atraumatic, Normocephalic Oral: Moist Mucosa, No Gingival or Mucosal Lesions/ Ulcerations Neck: No Nodes, Thyroid Normal Size and Texture Lungs: Clear to auscultation, Normal air movement, No rhonchi, No wheeze Cardiovascular: Regular rate, Regular Rhythm, Normal S1, Normal S2 Vital Signs Temp Pulse Resp BP Pulse Ox 36.4 C L 82 18 159/99 H 95 12/31/18 08:15 12/31/18 11:52 12/31/18 08:15 12/31/18 08:30 12/31/18 08:15 Oxygen Flow Rate (L/min) 2 Oxygen Delivery Method Room Air Weight: 151.7 kg Body Mass Index (BMI) 45.3 Intake and Output for Last 24 Hours 12/29/18 12/30/18 12/31/18 23:59 23:59 23:59 Intake Total 2023 1471.1 / 1471.1 Balance 2023 1471.1 / 1471.1 Laboratory Tests Past 24 Hrs 12/31/18 12/31/18 05:05 05:05 Sodium 142 Potassium 4.3 Chloride 110 H Carbon Dioxide 26.0 Anion Gap 6 BUN 17 Creatinine 1.28 Estim Creat Clear Calc 68.20 Est GFR (MDRD) Af Amer 74 Est GFR (MDRD) Non-Af 61 BUN/Creatinine Ratio 13.3 Glucose 117 H Calcium 8.6 Total Bilirubin 0.60 Direct Bilirubin 0.11 AST 19 ALT 28 Alkaline Phosphatase 63 Total Protein 6.6 Albumin 3.1 L Globulin 3.5 Triglycerides 371 H Cholesterol 184 LDL Cholesterol 85 VLDL Cholesterol 74 H HDL Cholesterol 25 L TSH 1.67 POC Glucose 12/30/18 12/30/18 22:06 17:44 POC Glucose 100 142 H Discharge Diet: Low fat/ Low Cholesterol Discharge Activity: Return to Normal Activity Call your doctor if you observe: Fever of 101 or Higher, Shortness of breath, Chest pain Home Medications: Medications to take at Discharge Acetaminophen [Tylenol Tablet] 650 mg PO Q6H PRN PRN tablet 12/31/18 Aspirin E.C. [Ecotrin] 81 mg PO DAILY@0800 tablet 12/31/18 Clopidogrel Bisulfate [Plavix] 75 mg PO DAILY #30 tablet 12/31/18 Isosorbide Mononitrate [Imdur] 30 mg PO DAILY #30 tablet 12/31/18 Metoprolol Tartrate [Lopressor (beta teddy)] 50 mg PO BID #60 tablet 12/31/18 Following Prescrptions Were Given to Patient: Clopidogrel Bisulfate [Plavix] 75 mg PO DAILY #30 tablet Isosorbide Mononitrate [Imdur] 30 mg PO DAILY #30 tablet Metoprolol Tartrate [Lopressor (beta teddy)] 50 mg PO BID #60 tablet Primary Care Physician: NOT,DEFINED [NON-STAFF] - Within 2 Weeks Please Follow Up With: Kamaljit Crowell MD When: 2 weeks Patient Instructions: Metoprolol Tartrate Oral tablet, Diltiazem Hydrochloride Oral tablet, What Is Atrial Flutter/Atrial Fibrillation?, Discharge Instructions for Atrial Fibrillation Disposition: Home Minutes spent on discharge:: 32 Patient Condition:: Good Medical Necessity - Tobacco Use Smoking Status: Never smoker Meaningful Use Info Meaningful Use Diagnoses (Choose all that apply): None applicable Code Visit Inpatient E&M: 55288 Disch Hosp
[2018-12-31] MEDS: Clopidogrel Bisulfate 75 MG Tablet PO (14:42)
--- NOTE | 2018-12-31 15:30 | NURSING ---
Discharge teaching complete. Provided teaching material on Afib, stroke, Imdur, Plavix, and Metoprolol. Patient and voices understanding of same.
== END 2018-12-31 14:20 | disposition home or self-care (01) ==
LOC: ED 04:06 → PCU 05:56
PROVIDERS: Hospitalist; Internal Medicine Cardiovascular Disease; Nurse Practitioner Family; Admitting Provider Internal Medicine; Emergency Provider Emergency Medicine; Referring Provider Internal Medicine
DX: I48.91 Unspecified atrial fibrillation (principal); R07.89 Other chest pain; E66.01 Morbid (severe) obesity due to excess calories; Z68.42 Body mass index [BMI] 45.0-49.9, adult; Z71.3 Dietary counseling and surveillance; I44.4 Left anterior fascicular block; R73.9 Hyperglycemia, unspecified
CPT/HCPCS: 36415; 71045; 80048; 80061; 80076; 82962; 83036; 83735; 84443; 84484; 85025; 85379; 85610; 93005; 93306; 96361; 96372; 96374; 96375; 99218; 99285; J7030; Q9957; A4216; G0378

== ENCOUNTER 2019-01-07 06:59 | Day surgery (SDC) | payer OTHER, SELFPAY ==
[2019-01-01 11:14] VITALS: BMI 45.7
[2019-01-03 14:11] VITALS: BMI 45.3
--- NOTE | 2019-01-07 08:59 | CL.D_ITS ---
Patient Name: RAMIRO AVILA Study Date: 01/07/2019 Performing: Kamaljit Crowell MD Ht: 72 inches 183 cm : 1960 Wt: 335.5 lbs 152 kg Age: 58 Gender: male BSA: 2.65 PROCEDURE(S) PERFORMED [id number]/COR/LV CLINICAL PROFILE AND INDICATIONS Indications: Suspected CAD Heart Failure: None Stress/Imaging Stress/Image Study Performed: No CAD Presentations: Symptom unlikely to be ischemic. CONCLUSIONS Normal coronary arteries Normal LV size, wall motion,and systolic function Slow flow filling. RECOMMENDATIONS Medical therapy DESCRIPTION OF PROCEDURE The patient arrived to the procedure lab. The risks and benefits of the procedure as well as a full d escription of our services here and current unavailability of surgical backup were fully explained to the patient and/or their significant other prior to the catheterization. The Timeout was completed, verifying the correct patient and procedure. The patient's procedural site was prepped and draped in the usual fashion. Local anesthetic was given subcutaneously to right groin region with Lidocaine 2%. Using a modified Seldinger technique, arterial access was obtained via the right femoral artery, a 5 Fr sheath was inserted. Left Coronary Artery selective angiography was performed in multiple views u sing a 5 Fr. JL4 catheter. Right Coronary Artery selective angiography was then performed in multiple views using a 5 Fr. 3DRC ([place]) catheter. Left Ventriculography was performed in SMALL projection using a 5 Fr. Pigtail catheter. LV to AO pullback pressures were then recorded.Contrast was injected through the sheath and the Right Iliac and Femoral artery were assessed for possible kait sure device.The arterial sheath was pulled and a Mynx closure device was deployed for hemostasis CORONARY ANGIOGRAPHY DOMINANCE: Left Dominant LEFT HEART ASSESSMENT Left Ventricular Ejection Fraction: by LV Gram 60 % Normal LV wall motion Normal Left Ventricular systolic function Normal Left Ventricular systolic function LEFT MAIN: Angiographically normal LEFT ANTERIOR DESCENDING ARTERY: Angiographically normal CIRCUMFLEX ARTERY: Angiographically normal RIGHT CORONARY ARTERY: Angiographically normal COMPLICATIONS No Complications PROCEDURE MEDICATIONS Versed 1 mg IV Oxygen: 2 L/min via nasal cannula IV Bolus: .9 NaCl 350 ml total 01/07/2019 08:20:43 SUMMARY OF HEMODYNAMIC DATA Time AIR REST ECG 07:31:20 AO 92/67 (77) SA 08:34:51 LV 99/-4, 1 08:42:07 LV 97/-4, 2 08:42:13 LV 103/-9, 2 08:43:02 LVp 102/-6, 2 08:43:07 AOp 100/62 (77) 08:43:12 Signed By Kamaljit Crowell MD On 01/07/2019 08:59:09 Kamaljit Crowell MD
== END 2019-01-07 11:30 | disposition home or self-care (01) ==
LOC: CLSP 07:01
PROVIDERS: Referring Provider Internal Medicine Cardiovascular Disease; Visit Provider Internal Medicine Cardiovascular Disease
DX: R07.89 Other chest pain (principal); I48.91 Unspecified atrial fibrillation; I09.9 Rheumatic heart disease, unspecified; E66.01 Morbid (severe) obesity due to excess calories; Z68.42 Body mass index [BMI] 45.0-49.9, adult; I25.2 Old myocardial infarction
CPT/HCPCS: 93458; 99152; 99153; C1760; J7040; C1769; Q9967

== ENCOUNTER → 2020-03-03 09:02 | Outpatient (CLI) | payer OTHER, SELFPAY ==
[2020-03-03 08:17] VITALS: BMI 45.3
[2020-03-03 12:13] LABS: Absolute Lymphocyte Count 2.48 X10^3/uL (0.83-4.51); Absolute Neutrophil Count 4.4 X10^3/uL (2.0-7.7); Basophil# 0.08 X10^3/uL; Eosinophil# 0.42 X10^3/uL; Eosinophils% 5.2 % (0-5); Hematocrit 51.5 % (40-54); Hemoglobin 16.5 g/dL (13.0-16.5); Lymphocyte # 2.48 X10^3/ul (4.0); Lymphocyte % 30.6 % (19-41); Mean Corpuscular Hgb 29.4 pg (27.0-32.0); Mean Corpuscular Volume 91.8 fL (80-94); Mean Platelet Vol. 10.9 fl (6.2-12.0); Monocyte# 0.65 X10^3/uL; NRBC Flagged by Analyzer 0 % (0-5); Neutrophil # 4.43 X10^3/uL (2.7-7.7); Neutrophil % 54.6 % (47-70); Platelet Count 190 K/mm3 (150-450); RBC Distribution Width CV 14.2 % (11.6-14.6); RBC Distribution Width SD 46.5 fl (35.1-43.9); Red Blood Count 5.61 M/mm3 (4.6-6.2); White Blood Count 8.1 K/mm3 (4.4-11.0)
[2020-03-03 12:32] LABS: ALB/GLOB Ratio 1.1 RATIO (0.9-2.4); AST(SGOT) 18 U/L (15-37); Alanine Aminotransfer ALT/SGPT 34 U/L (16-61); Albumin, Serum 3.8 g/dL (3.2-5.0); Alkaline Phosphatase 64 U/L (45-117); Anion Gap 6 (5-15); BUN 17 mg/dL (7-18); BUN/Creat Ratio 13.5 RATIO (10-20); Calcium,Total 8.8 mg/dL (8.5-10.1); Chloride 111 mmol/L (98-107); Cholesterol 163 mg/dL (200); Creatinine, Serum 1.26 mg/dL (0.70-1.30); EST Glomerular Filtration Rate 62 mL/min (>60); Est Glom Filt Rate - Afr Amer 75 mL/min (>60); Globulin 3.6 g/dL (2.2-4.2); Glucose 106 mg/dL (74-106); High Density Lipoprotein 27 mg/dL; Potassium 4.4 mmol/L (3.5-5.1); Protein, Total 7.4 g/dL (6.4-8.2); Sodium Level 142 mmol/L (136-145); Triglycerides 255 mg/dL; Very Low Density Lipoprotein 51 mg/dL (5-40)
== END ==
PROVIDERS: PCP Internal Medicine; Referring Provider Internal Medicine; Visit Provider Internal Medicine
DX: I10 Essential (primary) hypertension (principal)
CPT/HCPCS: 36415; 80053; 80061; 85025

== ENCOUNTER 2020-07-27 08:37 | Day surgery (SDC) | payer OTHER, SELFPAY ==
[2020-07-06 13:03] VITALS: BMI 44.6
[2020-07-27] VITALS (7 sets, daily range): BP systolic 100–129; BP diastolic 70–81; PULSE 56–69; RESP 16–18; TEMP 36.2–36.6; O2SAT 93–96; BMI 43.9
[2020-07-27] MEDS: Lactated Ringers 1,000 ML 100 ML IV (09:06)
--- NOTE | 2020-07-27 10:06 | OP.CCLET_ITS ---
07/27/2020 Brandon Frederick MD [address] [place] [address] [place] [address] Re : Colonoscopy procedure for Emilia Cortez Dear Dr. Frederick This procedure was performed on Monday, July 27, 2020. My impressions and recommendations are as follows: Impressions : - Diverticulosis in the sigmoid colon and in the descending colon. No specimens collected. - The examination was otherwise normal. Recommendations : - Discharge patient to home. - Resume previous diet. - Continue present medications. - Repeat colonoscopy in 10 years for screening purposes. - Return to primary care physician at appointment to be scheduled. My findings are described in the full procedure note, which is enclosed. If I can be of further assistance, please feel free to contact me at Doctor phone number(s): , Fax: [phone], Work: . Sincerely, MD Demond Gómez MD 07/27/2020 10:05:36 AM This report has been signed electronically.
--- NOTE | 2020-07-27 10:06 | OP.COLON_ITS ---
Patient Name: Emilia Cortez Procedure Date: 07/27/2020 9:39 AM Date of : 1960 Age: 59 Procedure: Colonoscopy Indications: Screening for colorectal malignant neoplasm Providers: Demond Seymour MD Referring MD: Brandon Frederick MD Medicines: See the Anesthesia note for documentation of the administered medications Patient Profile: This is a 59 year old male. Refer to note in patient chart for documentation of history and physical. Last Colonoscopy: none. The patient's first colonoscopy is today. Complications: No immediate complications. Procedure: Pre-Anesthesia Assessment: - Prior to the procedure, a History and Physical was performed, and patient medications and allergies were reviewed. The patient's tolerance of previous anesthesia was also reviewed. The risks and benefits of the procedure and the sedation options and risks were discussed with the patient. All questions were answered, and informed consent was obtained. Prior Anticoagulants: The patient has taken no previous anticoagulant or antiplatelet agents. ASA Grade Assessment: III - A patient with severe systemic disease. After reviewing the risks and benefits, the patient was deemed in satisfactory condition to undergo the procedure. After I obtained informed consent, the scope was passed under direct vision. Throughout the procedure, the patient's blood pressure, pulse, and oxygen saturations were monitored continuously. The adult colonoscope was introduced through the anus and advanced to the cecum, identified by appendiceal orifice and ileocecal valve. The colonoscopy was performed without difficulty. The patient tolerated the procedure well. The quality of the bowel preparation was adequate to identify polyps 6 mm and larger in size. Scope In: 9:48:16 AM Scope Withdrawal Time 0 hours 7 minutes 5 seconds Scope Out: 10:02:42 AM Total Procedure Duration Time 0 hours 14 minutes 26 seconds Findings: Multiple small and large-mouthed diverticula were found in the sigmoid colon and descending colon. No biopsies or other specimens were collected for this exam. The exam was otherwise without abnormality. Impression: - Diverticulosis in the sigmoid colon and in the descending colon. No specimens collected. - The examination was otherwise normal. Recommendation: - Discharge patient to home. - Resume previous diet. - Continue present medications. - Repeat colonoscopy in 10 years for screening purposes. - Return to primary care physician at appointment to be scheduled. Procedure Code(s): --- Professional --- 21036, Colonoscopy, flexible; diagnostic, including collection of specimen(s) by brushing or washing, when performed (separate procedure) Diagnosis Code(s): --- Professional --- Z12.11, Encounter for screening for malignant neoplasm of colon K57.30, Diverticulosis of large intestine without perforation or abscess without bleeding CPT copyright 2017 [employer]. All rights reserved. The codes documented in this report are preliminary and upon invoice coder review may be revised to meet current compliance requirements. MD Demond Gómez MD 07/27/2020 10:05:36 AM This report has been signed electronically. Number of Addenda: 0 Note Initiated On: 07/27/2020 9:39 AM
--- NOTE | 2020-07-27 11:17 | HP_ITS ---
Intake Vital Signs 07/06/20 Height 5 ft 11 in 07/06/20 Weight: 320 lb 07/06/20 BMI 44.6 07/06/20 BP 155/98 H 07/06/20 Blood Pressure Location Rt brachial 07/06/20 Position Sitting 07/06/20 Respiration 16 07/06/20 Pulse 60 07/06/20 Pulse Source Monitor 07/06/20 Temp 97.7 F L 07/06/20 Temp Source Temporal 07/06/20 Pulse Oximetry (%) 97 07/06/20 Oxygen Delivery Method room air Intake Visit Reasons: C-Scope Chief Complaint: discuss cscope Process Specialist Required: No Is patient in pain?: No Allergies No Known Allergies Allergy (Verified 07/06/20 13:06) Medications metoprolol tartrate 50 mg tablet 50 mg PO BID #180 tab 03/12/20 [Rx Confirmed 07/06/20] aspirin 81 mg tablet,delayed release 81 mg PO DAILY #1 tab 04/02/20 [Rx Confirmed 07/06/20] PFSH Medical History Morbid obesity (Chronic) Rheumatic heart disease, unspecified (Chronic) Cataracts, bilateral (Resolved) history of skin biopsy (Acute) Eccrine porocarcinoma of skin (Chronic) Essential hypertension (Chronic) Skin lesion of right leg (Acute) Diastolic dysfunction (Chronic) Atrial fibrillation with RVR (Chronic 12/30/18) Surgical History History of left heart catheterization (Resolved 01/07/19) Hx of knee surgery (Resolved) Hx of LASIK (Resolved) Family History Mother Diabetes Hypertension CVA (cerebral vascular accident) Brother Heart disease Father Hypertension Grandfather Hypertension Aunt CVA (cerebral vascular accident) Uncle ALS (amyotrophic lateral sclerosis) Social History (Updated 07/06/20 @ 13:[address] Demond Seymour MD) Smoking Status: Never smoker second hand exposure: No alcohol intake: never substance use type: does not use caffeine: Yes what type of physical activity do you participate in: none frequency: does not exercise HPI HPI Surgical H&P: Yes HPI: RAMIRO AVILA, is a 59 M who presents to the office today for Presents for screening colonoscopy. Patient has never had a colonoscopy in the past. He is not having any bowel issues at the present time. He has no family history of colon cancer's. ROS General General: No weight change, appetite, fatigue, colon cancer, breast cancer or weakness HEENT HEENT: Yes eye surgery; no difficulty swallowing, eye injury, swollen glands or hoarseness Endo Endocrine: No thyroid disease, diabetes mellitus, thyroid cancer, Hair loss, heat intolerance or cold intolerance Skin Skin: No rash or changing moles Musc Musculoskeletal: No back problems, arthritis, rheumatoid arthritis, gout or joint pain Cardio Cardiovascular: Yes atrial fibrillation and high blood pressure; no murmur, pacemaker, heart disease, heart attack, heart stent, palpitations, shortness of breat with exertion or chest pain Psych Psychiatric: No depression, anxiety or hearing voices Resp Respiratory: No shortness of breath, Yes sleep apnea, No cough, No COPD, No asthma, No emphysema, No wheezing Gastro Gastrointestinal: No abdominal pain, No nausea or vomiting, No diarrhea, No constipation, No blood in stool, No acid reflux, No hemorrhoids, No ulcers, No gallbladder problem, No black,tarry stools Eliezer Hematologic: No blood thinners, No blood disorders, No bleeding, No anemia, No blood clots Neuro Neurologic: No system reviewed and no additional complaints, except as docu, No as per HPI, No abnormal walking, No abnormal hearing, No abnormal movements, No abnormal speech, No behavioral changes, No burning sensations, No confusion, No seizure-like activity, No unsteadiness, No dizziness, No localized weakness, No frequent falls, No headache(s), No lack of coordination, No loss of vision, No memory loss, No numbness, No other visual disturbances, No radiating pain, No restless legs, No sensory deficit, No fainting, No tingling, No tremor(s), No weakness, No other Exam Const General: no acute distress, well developed, well hydrated Orientation: oriented to person, oriented to place, oriented to time [facility] Head: normocephalic, atraumatic Ears: external ears normal Mouth: moist mucous membranes Eyes Sclera: sclerae normal Pupils: normal by confrontation Neck Neck: no lymphadenopathy noted Neck mass: No Thyroid: thyroid normal, symmetrical Chest Chest palpation & inspection: normal inspection of the chest Resp Effort & Inspection: normal respiratory effort Auscultation: clear to auscultation bilaterally Percussion: percussion normal Cardio Rate: regular rate Rhythm: regular rhythm Heart Sounds: no murmurs GI Inspection: obesity Palpation: soft, no hepatosplenomegaly, no masses, nontender Rectal Exam: other Other: Rectal exam deferred. Extrem General: normal to inspection, no clubbing, cyanosis or edema Assessment & Plan Problems 1. Encounter for screening colonoscopy Z12.11 Plan I have discussed the above with the patient. I have offered the patient colonoscopy for evaluation. I have explained the risks/benefits of the procedure and described the procedure. I have discussed the risks with the patient, including but not limited to: infection, bleeding, perforation of the GI tract requiring emergency surgery, inability to complete the procedure, injury to any internal organs, complications of anesthesia, etc. - the patient understands and agrees to proceed. I have answered all the patient's questions to the patient's satisfaction and the patient has no further questions. The patient has been given instructions for the colon cleansing preparation. Coding Level of Care Code Off vis,new,level 3 Diagnoses Encounter for screening colonoscopy Z12.11 COVID (Procedure Consent) Procedure Criteria Procedure Criteria: Yes Elective The surgeon/proceduralist and patient have discussed in detail the risk of exposure to and/or potential harm posed by the COVID-19 virus with having a surgery/procedure at this time versus the risk of? delaying the surgery/procedure. It is not possible to know either the risk of delaying the surgery or procedure or chance of getting an infection with perfect accuracy, but a joint decision was made between the patient and the surgeon/proceduralist ?to proceed at this time with the scheduled surgery/procedure as indicated on the consent form. I have re-examined the patient. There are no clinical changes since date of exam.
== END 2020-07-27 11:20 | disposition home or self-care (01) ==
LOC: EN 08:37 → AC 08:38
PROVIDERS: PCP Internal Medicine; Referring Provider Internal Medicine; Visit Provider Surgery
PROC: 0DJD8ZZ Inspection of Lower Intestinal Tract, Via Natural or Artificial Opening Endoscopic (ICD-10-PCS; CPT 45378; principal; 2020-07-27 09:40)
DX: Z12.11 Encounter for screening for malignant neoplasm of colon (principal); K57.30 Diverticulosis of large intestine without perforation or abscess without bleeding; Z20.828 Contact with and (suspected) exposure to other viral communicable diseases; I48.91 Unspecified atrial fibrillation; I10 Essential (primary) hypertension; E66.01 Morbid (severe) obesity due to excess calories; Z68.41 Body mass index [BMI] 40.0-44.9, adult; Z79.82 Long term (current) use of aspirin; Z79.899 Other long term (current) drug therapy; Z85.828 Personal history of other malignant neoplasm of skin
CPT/HCPCS: 45378; 87426; C9803; J7120; J1610; J2405

== ENCOUNTER → 2021-01-05 10:13 | Outpatient (CLI) | payer OTHER, SELFPAY ==
[2021-01-05 09:48] VITALS: BMI 45.8
[2021-01-05 12:26] LABS: Absolute Lymphocyte Count 2.77 X10^3/uL (0.83-4.51); Absolute Neutrophil Count 5.1 X10^3/uL (2.0-7.7); Basophil# 0.09 X10^3/uL; Eosinophil# 0.41 X10^3/uL; Eosinophils% 4.4 % (0-5); Hematocrit 54.9 % (40-54); Hemoglobin 17.7 g/dL (13.0-16.5); Lymphocyte # 2.77 X10^3/ul (0.83-4.51); Lymphocyte % 29.4 % (19-41); Mean Corp Hgb Conc 32.2 g/dL (32-36); Mean Corpuscular Hgb 28.9 pg (27.0-32.0); Mean Corpuscular Volume 89.6 fL (80-94); Mean Platelet Vol. 10.2 fl (6.2-12.0); Monocyte# 0.93 X10^3/uL; Monocyte% 9.9 % (0-10); NRBC Flagged by Analyzer 0 % (0-5); Neutrophil # 5.14 X10^3/uL (2.7-7.7); Neutrophil % 54.5 % (47-70); Platelet Count 189 K/mm3 (150-450); RBC Distribution Width CV 13.7 % (11.6-14.6); RBC Distribution Width SD 44.7 fl (35.1-43.9); Red Blood Count 6.13 M/mm3 (4.6-6.2); White Blood Count 9.4 K/mm3 (4.4-11.0)
[2021-01-05 12:54] LABS: AST(SGOT) 29 U/L (15-37); Alanine Aminotransfer ALT/SGPT 44 U/L (16-61); Albumin, Serum 3.8 g/dL (3.2-5.0); Alkaline Phosphatase 71 U/L (45-117); Anion Gap 5 (5-15); BUN 21 mg/dL (7-18); BUN/Creat Ratio 14.8 RATIO (10-20); Calcium,Total 9.2 mg/dL (8.5-10.1); Chloride 107 mmol/L (98-107); Cholesterol 195 mg/dL (200); Creatinine, Serum 1.42 mg/dL (0.70-1.30); EST Glomerular Filtration Rate 54 mL/min (>60); Est Glom Filt Rate - Afr Amer 65 mL/min (>60); Globulin 3.7 g/dL (2.2-4.2); Glucose 81 mg/dL (74-106); High Density Lipoprotein 31 mg/dL; Potassium 4.1 mmol/L (3.5-5.1); Protein, Total 7.5 g/dL (6.4-8.2); Sodium Level 141 mmol/L (136-145); Triglycerides 404 mg/dL
== END ==
PROVIDERS: PCP Internal Medicine; Visit Provider Internal Medicine
DX: I10 Essential (primary) hypertension (principal)
CPT/HCPCS: 36415; 80053; 80061; 85025

== ENCOUNTER → 2021-04-09 11:57 | Outpatient (CLI) | payer OTHER, SELFPAY ==
[2021-04-09 12:49] LABS: ALB/GLOB Ratio 0.9 RATIO (0.9-2.4); AST(SGOT) 27 U/L (15-37); Alanine Aminotransfer ALT/SGPT 44 U/L (16-61); Albumin, Serum 3.5 g/dL (3.2-5.0); Alkaline Phosphatase 64 U/L (45-117); Anion Gap 2 (5-15); BUN 17 mg/dL (7-18); BUN/Creat Ratio 13.5 RATIO (10-20); Calcium,Total 8.6 mg/dL (8.5-10.1); Chloride 109 mmol/L (98-107); Cholesterol 166 mg/dL (200); Creatinine, Serum 1.26 mg/dL (0.70-1.30); EST Glomerular Filtration Rate 62 mL/min (>60); Est Glom Filt Rate - Afr Amer 75 mL/min (>60); Globulin 3.7 g/dL (2.2-4.2); Glucose 101 mg/dL (74-106); High Density Lipoprotein 25 mg/dL; Potassium 4.2 mmol/L (3.5-5.1); Protein, Total 7.2 g/dL (6.4-8.2); Sodium Level 138 mmol/L (136-145); Triglycerides 548 mg/dL
== END ==
PROVIDERS: PCP Internal Medicine; Referring Provider Internal Medicine; Visit Provider Internal Medicine
DX: E78.5 Hyperlipidemia, unspecified (principal)
CPT/HCPCS: 36415; 80053; 80061

== ENCOUNTER 2021-05-24 23:37 | Emergency (ER) | payer OTHER, SELFPAY ==
[2021-05-24 23:38] VITALS: BP 170/98; PULSE 63; RESP 22; TEMP 36.4; O2SAT 97; BMI 46.0
[2021-05-25 01:16] LABS: Absolute Lymphocyte Count 3.18 X10^3/uL (0.83-4.51); Absolute Neutrophil Count 4.7 X10^3/uL (2.0-7.7); Basophil# 0.08 X10^3/uL; Basophil% 0.8 % (0-1); Eosinophil# 0.42 X10^3/uL; Eosinophils% 4.4 % (0-5); Hematocrit 50.7 % (40-54); Hemoglobin 16.5 g/dL (13.0-16.5); Lymphocyte # 3.18 X10^3/ul (0.83-4.51); Lymphocyte % 33.4 % (19-41); Mean Corp Hgb Conc 32.5 g/dL (32-36); Mean Corpuscular Volume 89.3 fL (80-94); Mean Platelet Vol. 9.8 fl (6.2-12.0); Monocyte# 1.09 X10^3/uL; Monocyte% 11.4 % (0-10); NRBC Flagged by Analyzer 0 % (0-5); Neutrophil # 4.72 X10^3/uL (2.7-7.7); Neutrophil % 49.6 % (47-70); Platelet Count 167 K/mm3 (150-450); RBC Distribution Width CV 13.2 % (11.6-14.6); RBC Distribution Width SD 42.9 fl (35.1-43.9); Red Blood Count 5.68 M/mm3 (4.6-6.2); White Blood Count 9.5 K/mm3 (4.4-11.0)
--- NOTE | 2021-05-25 01:23 | CT_ITS ---
STUDY: CT ABDOMEN AND PELVIS WITH CONTRAST REASON FOR EXAM: Male, 60 years old. Abdominal pain RADIATION DOSAGE (If Supplied By Facility): CTDIvol = ( 26.70 ) mGy, DLP = ( 1850.62 ) mGycm TECHNIQUE: Transaxial images were obtained from the dome of the diaphragm to the symphysis pubis without oral contrast. IV 100mL Isovue-300 was administered. Sagittal and coronal images were reconstructed. Individualized dose optimization techniques were used for this CT. COMPARISON: None. FINDINGS: The visualized lung bases are unremarkable. The visualized portions of the heart are within normal limits. Normal liver. Normal gallbladder and extrahepatic biliary system. Normal spleen. Normal pancreas. Normal bilateral adrenal glands. Normal right kidney. Normal left kidney. Normal visualized stomach. Normal small intestine. There are multiple colonic diverticula consistent with diverticulosis. The appendix is visualized and appears normal. Normal abdominal aorta. Normal inferior vena cava. Normal retroperitoneum. Normal urinary bladder. Normal visualized prostate gland. Normal abdominal wall. Bilateral L5 pars defects with grade 1 L5-S1 anter[address]hesis. CT/Abdomen/Pelvis W IV Cont ONLY IMPRESSION: No acute abnormal finding in the abdomen or pelvis. Electronically Signed: Mark Siegel MD at 2:35 EDT Tel , Service support ,
[2021-05-25] MEDS: Morphine 4 MG/ML Syringe IV (01:32)
[2021-05-25] MEDS: 0.9% Normal Saline 1,000 ML 1000 ML IV (01:33)
[2021-05-25] MEDS: Ondansetron 4 MG/2 ML Vial IV (01:33)
[2021-05-25 01:39] LABS: ALB/GLOB Ratio 0.9 RATIO (0.9-2.4); AST(SGOT) 20 U/L (15-37); Alanine Aminotransfer ALT/SGPT 32 U/L (16-61); Albumin, Serum 3.4 g/dL (3.2-5.0); Alkaline Phosphatase 58 U/L (45-117); Anion Gap 3 (5-15); BUN 17 mg/dL (7-18); BUN/Creat Ratio 12.8 RATIO (10-20); Calcium,Total 8.8 mg/dL (8.5-10.1); Chloride 108 mmol/L (98-107); Creatinine, Serum 1.33 mg/dL (0.70-1.30); EST Glomerular Filtration Rate 58 mL/min (>60); Est Glom Filt Rate - Afr Amer 70 mL/min (>60); Estimated Creatinine Clearance 62.12 ml/min; Globulin 3.7 g/dL (2.2-4.2); Glucose 128 mg/dL (74-106); Potassium 4.1 mmol/L (3.5-5.1); Protein, Total 7.1 g/dL (6.4-8.2); Sodium Level 139 mmol/L (136-145)
--- NOTE | 2021-05-25 02:41 | EDS_ITS ---
HPI HPI - GI History of Present Illness Chief Complaint: Abd Pain Narrative Narrative: 50-year-old male presenting with abdominal pain. He states it started on the right lower quadrant and since then has spread to the left lower quadrant. He states this is been going on since about 1030 last evening. He has nausea without vomiting. He denies diarrhea or constipation. He is not had a fever. He denies any previous abdominal surgeries. No history of kidney stones. No urinary complaints. PFSH PFSH Medical History Atrial fibrillation with RVR (12/30/18) Cataracts, bilateral Diastolic dysfunction Eccrine porocarcinoma of skin Essential hypertension Hyperlipidemia Morbid obesity Rheumatic heart disease, unspecified Skin lesion of right leg Skin tags, multiple acquired VSD (ventricular septal defect) Home Medications multivitamin 1 ea PO DAILY 07/23/20 [History Last Taken Unknown] metoprolol tartrate 50 mg tablet 50 mg PO BID #180 tab 03/15/21 [Rx Last Taken Unknown] rosuvastatin 20 mg tablet 20 mg PO DAILY #60 tab 04/09/21 [Rx Last Taken Unknown] Allergy/AdvReac Type Severity Reaction Status Date / Time No Known Allergies Allergy Verified 04/09/21 11:26 Family History Mother Diabetes Hypertension CVA (cerebral vascular accident) Brother Heart disease Father Hypertension Grandfather Hypertension Aunt CVA (cerebral vascular accident) Uncle ALS (amyotrophic lateral sclerosis) Surgical History History of colonoscopy History of left heart catheterization (01/07/19) history of skin biopsy Hx of knee surgery Hx of LASIK Social History Smoking Status: Never smoker second hand exposure: No alcohol intake: never substance use type: does not use caffeine: Yes what type of physical activity do you participate in: none frequency: does not exercise ROS ROS ED Constitutional Constitutional ED: Denies chills or fever(s) ENT ENT ED: Denies rhinorrhea or sore throat Cardiovascular Cardiovascular: Denies chest pain or palpitations Respiratory/Chest Respiratory/Chest: Denies cough or dyspnea Gastrointestinal Gastrointestinal: Reports abdominal pain and nausea; Denies constipation, diarrhea or vomiting Genitourinary Genitourinary ED: Denies dysuria or hematuria Musculoskeletal Musculoskeletal: Denies arthralgias or myalgias Integumentary Denies Abrasions or rash Neurologic Neurologic: Denies headache(s) or paresthesias EXAM Physical Exam Const Vital Signs: 05/24/21 23:38 Temperature 97.6 F L Temperature Source Temporal Pulse Rate 63 Respiratory Rate 22 H Blood Pressure 170/98 H Blood Pressure Mean 122 Pulse Ox 97 Positive well nourished General Appearance ED: NAD; Negative for pallor HEENT Reports moist mucous membranes normocephalic and atraumatic Eyes PERRL and EOMs intact bilaterally General Eye ED: Negative for scleral icterus Resp normal respiratory effort and clear to auscultation bilaterally Cardio regular rate and regular rhythm GI Palpation: soft and tender LLQ and RLQ Extremity full ROM Neuro CN's II-XII intact bilaterally Sensorium / Orientation: alert, oriented to person, oriented to place and oriented to time Psych mental status grossly normal and thought process normal Skin General Skin Exam: Negative for jaundice or pallor MDM MDM MDM Narrative Medical decision making narrative: Patient given morphine and Zofran. I did check blood work and has CBC and CMP are within normal limits with exception of a creatinine of 1.33 with his previous creatinine being only 1.26. This is not significant change. Glucose is 128 without an anion gap. Urinalysis is negative for infection. CT of the abdomen pelvis with IV contrast identifies no acute intra-abdominal abnormalities. Patient still complaining of some mild pain is given Toradol. I feel patient is stable to be discharged home at this time. He is given return precautions. Impression: 1. Abdominal pain Lab Data Attestation: I reviewed the patient's lab results. Labs: Laboratory Results - last 24 hr 05/25/21 05/25/21 05/25/21 01:03 01:03 03:25 WBC 9.5 RBC 5.68 Hgb 16.5 Hct 50.7 MCV 89.3 MCH 29.0 MCHC 32.5 RDW Std Deviation 42.9 RDW Coeff of Jess 13.2 Plt Count 167 MPV 9.8 Immature Gran % (Auto) 0.400 Neut % (Auto) 49.6 Lymph % (Auto) 33.4 [place] % (Auto) 11.4 H Eos % (Auto) 4.4 Baso % (Auto) 0.8 Absolute Neuts (auto) 4.7 Absolute Lymphs (auto) 3.18 Nucleated RBC % 0 Sodium 139 Potassium 4.1 Chloride 108 H Carbon Dioxide 28.0 Anion Gap 3 L BUN 17 Creatinine 1.33 H Estim Creat Clear Calc 62.12 Est GFR (MDRD) Af Amer 70 Est GFR (MDRD) Non-Af 58 L BUN/Creatinine Ratio 12.8 Glucose 128 H Calcium 8.8 Total Bilirubin 0.50 AST 20 ALT 32 Alkaline Phosphatase 58 Total Protein 7.1 Albumin 3.4 Globulin 3.7 Albumin/Globulin Ratio 0.9 Urine Color Yellow Urine Clarity Clear Urine pH 5.0 Ur Specific [place] 1.015 Urine Protein 30 H Urine Glucose (UA) Normal Urine Ketones Negative Urine Occult Blood 10 H Urine Nitrite Negative Urine Bilirubin Negative Urine Urobilinogen Normal Ur Leukocyte Esterase Negative Urine RBC 0 SEEN Urine WBC 0-5 SEEN Ur Squamous Epith Cells 0-5 SEEN Urine Bacteria 0 SEEN Urine Mucus 0 SEEN Radiography Diagnostic Testing: Clinical Impression(s) from Imaging Studies Abdomen/Pelvis CT 05/25/21 01:23 IMPRESSION: No acute abnormal finding in the abdomen or pelvis. Electronically Signed: Mark Siegel MD at 2:35 EDT Tel , Service support , Discharge Plan Triage Chief Complaint: Abd Pain ED Provider: Jeffery Jimenez Dx/Rx/DC Orders Instructions: ED Abdominal Pain Unkn Cause Male... Prescriptions: No Action multivitamin 1 EACH tablet 1 ea PO DAILY RF: 0 metoprolol tartrate 50 mg tablet 50 mg PO BID Qty: 180 RF: 3 rosuvastatin 20 mg tablet 20 mg PO DAILY Qty: 60 RF: 1 Primary Care Provider: Brandon Frederick Referrals: Brandon Frederick MD [Primary Care Provider] - Disposition Disposition: Home, Self Care
[2021-05-25 03:34] LABS: Bacteria 0 SEEN /hpf (None Seen); Mucous, Urine 0 SEEN /hpf (<or=2+); Red Blood Cells-Urine 0 SEEN /hpf (0-5)
[2021-05-25 03:44] LABS: Color, Urine Yellow (Yellow); Glucose, Dipstick Normal (Normal); Ketone-Dipstick Negative (Negative); Leukocyte Esterase-Dipstick Negative /ul (Negative); Nitrite-Dipstick Negative (Negative); Occult Blood-Urine 10 /ul (Negative); Protein-Dipstick 30 mg/dl (Negative); Specific Gravity, Urine 1.015 (1.002-1.030); Urine Bilirubin Dipstick Negative (Negative); Urine Clarity Clear (Clear); Urine Urobilinogen Normal (Normal)
[2021-05-25 03:51] LABS: Squamous Epithelial Cells - UA 0-5 SEEN /hpf (0-5); White Blood Cells 0-5 SEEN /hpf (0-5)
[2021-05-25] MEDS: Ketorolac 15 MG/ML Vial IV (04:09)
[2021-05-25 04:14] VITALS: BP 174/46; PULSE 86; RESP 18; O2SAT 98
== END 2021-05-25 04:27 | disposition home or self-care (01) ==
PROVIDERS: Emergency Provider Student in an Organized Health Care Education/Training Program; PCP Internal Medicine
DX: R10.9 Unspecified abdominal pain (principal); R11.0 Nausea; I48.91 Unspecified atrial fibrillation; I10 Essential (primary) hypertension; E78.5 Hyperlipidemia, unspecified; E66.01 Morbid (severe) obesity due to excess calories; Z79.899 Other long term (current) drug therapy
CPT/HCPCS: 74177; 80053; 81001; 85025; 96361; 96374; 96375; 99283; J7030; Q9967; A4216; J2405

== ENCOUNTER → 2022-01-24 | Outpatient (CLI) | payer OTHER, SELFPAY ==
[2022-01-24 10:06] LABS: Absolute Lymphocyte Count 1.89 X10^3/uL (0.83-4.51); Absolute Neutrophil Count 4.6 X10^3/uL (2.0-7.7); Basophil# 0.07 X10^3/uL; Basophil% 0.9 % (0-1); Eosinophil# 0.41 X10^3/uL; Eosinophils% 5.3 % (0-5); Hematocrit 52.9 % (40-54); Hemoglobin 17.2 g/dL (13.0-16.5); Lymphocyte # 1.89 X10^3/ul (0.83-4.51); Lymphocyte % 24.6 % (19-41); Mean Corp Hgb Conc 32.5 g/dL (32-36); Mean Corpuscular Hgb 28.6 pg (27.0-32.0); Mean Corpuscular Volume 87.9 fL (80-94); Mean Platelet Vol. 10.6 fl (6.2-12.0); Monocyte# 0.69 X10^3/uL; NRBC Flagged by Analyzer 0 % (0-5); Neutrophil # 4.58 X10^3/uL (2.7-7.7); Neutrophil % 59.7 % (47-70); Platelet Count 168 K/mm3 (150-450); RBC Distribution Width CV 13.4 % (11.6-14.6); RBC Distribution Width SD 43.3 fl (35.1-43.9); Red Blood Count 6.02 M/mm3 (4.6-6.2); White Blood Count 7.7 K/mm3 (4.4-11.0)
[2022-01-24 10:41] LABS: ALB/GLOB Ratio 1.1 RATIO (0.9-2.4); AST(SGOT) 21 U/L (15-37); Alanine Aminotransfer ALT/SGPT 34 U/L (16-61); Albumin, Serum 3.7 g/dL (3.2-5.0); Alkaline Phosphatase 55 U/L (45-117); Anion Gap 3 (5-15); BUN 16 mg/dL (7-18); BUN/Creat Ratio 13.6 RATIO (10-20); Calcium,Total 8.9 mg/dL (8.5-10.1); Chloride 107 mmol/L (98-107); Cholesterol 110 mg/dL (200); Creatinine, Serum 1.18 mg/dL (0.70-1.30); EST Glomerular Filtration Rate 66 mL/min (>60); Est Glom Filt Rate - Afr Amer 80 mL/min (>60); Globulin 3.4 g/dL (2.2-4.2); Glucose 107 mg/dL (74-106); High Density Lipoprotein 33 mg/dL; Potassium 4.5 mmol/L (3.5-5.1); Protein, Total 7.1 g/dL (6.4-8.2); Sodium Level 139 mmol/L (136-145); Triglycerides 182 mg/dL; Very Low Density Lipoprotein 36 mg/dL (5-40)
== END | disposition home or self-care (01) ==
PROVIDERS: PCP Internal Medicine; Visit Provider Internal Medicine
DX: I10 Essential (primary) hypertension (principal); E78.5 Hyperlipidemia, unspecified
CPT/HCPCS: 36415; 80053; 80061; 85025

== ENCOUNTER → 2023-08-01 | Outpatient (CLI) | payer OTHER, SELFPAY ==
[2023-08-01 12:12] LABS: Absolute Lymphocyte Count 1.35 X10^3/uL (0.83-4.51); Absolute Neutrophil Count 6.6 X10^3/uL (2.0-7.7); Basophil# 0.09 X10^3/uL; Eosinophil# 0.35 X10^3/uL; Eosinophils% 3.8 % (0-5); Hematocrit 54.7 % (40-54); Hemoglobin 17.2 g/dL (13.0-16.5); Lymphocyte # 1.35 X10^3/ul (0.83-4.51); Lymphocyte % 14.5 % (19-41); Mean Corp Hgb Conc 31.4 g/dL (32-36); Mean Corpuscular Hgb 28.2 pg (27.0-32.0); Mean Corpuscular Volume 89.5 fL (80-94); Mean Platelet Vol. 10.5 fl (6.2-12.0); Monocyte# 0.82 X10^3/uL; Monocyte% 8.8 % (0-10); NRBC Flagged by Analyzer 0 % (0-5); Neutrophil # 6.62 X10^3/uL (2.7-7.7); Neutrophil % 71.3 % (47-70); Platelet Count 167 K/mm3 (150-450); RBC Distribution Width CV 13.9 % (11.6-14.6); RBC Distribution Width SD 44.9 fl (35.1-43.9); Red Blood Count 6.11 M/mm3 (4.6-6.2); White Blood Count 9.3 K/mm3 (4.4-11.0)
[2023-08-01 12:26] LABS: AST(SGOT) 23 U/L (15-37); Alanine Aminotransfer ALT/SGPT 40 U/L (16-61); Albumin, Serum 3.6 g/dL (3.2-5.0); Alkaline Phosphatase 60 U/L (45-117); Anion Gap 4 (5-15); BUN 15 mg/dL (7-18); BUN/Creat Ratio 11.4 RATIO (10-20); Calcium,Total 9.2 mg/dL (8.5-10.1); Chloride 108 mmol/L (98-107); Cholesterol 115 mg/dL (200); Creatinine, Serum 1.32 mg/dL (0.70-1.30); EST Glomerular Filtration Rate 58 mL/min (>60); Est Glom Filt Rate - Afr Amer 70 mL/min (>60); Globulin 3.7 g/dL (2.2-4.2); Glucose 126 mg/dL (74-106); High Density Lipoprotein 37 mg/dL; Potassium 4.3 mmol/L (3.5-5.1); Protein, Total 7.3 g/dL (6.4-8.2); Sodium Level 138 mmol/L (136-145); Triglycerides 208 mg/dL; Very Low Density Lipoprotein 42 mg/dL (5-40)
== END | disposition home or self-care (01) ==
LOC: BIMLAB 09:23
PROVIDERS: PCP Internal Medicine; Referring Provider Physician Assistant; Visit Provider Physician Assistant
DX: I10 Essential (primary) hypertension (principal); E78.5 Hyperlipidemia, unspecified
CPT/HCPCS: 36415; 80053; 80061; 85025

== ENCOUNTER → 2024-01-26 | Outpatient (CLI) | payer OTHER, SELFPAY ==
[2024-01-26 12:18] LABS: Absolute Lymphocyte Count 1.28 X10^3/uL (0.83-4.51); Absolute Neutrophil Count 4.4 X10^3/uL (2.0-7.7); Basophil# 0.05 X10^3/uL; Basophil% 0.7 % (0-1); Eosinophil# 0.27 X10^3/uL; Hematocrit 52.8 % (40-54); Hemoglobin 17.1 g/dL (13.0-16.5); Lymphocyte # 1.28 X10^3/ul (0.83-4.51); Mean Corp Hgb Conc 32.4 g/dL (32-36); Mean Corpuscular Hgb 28.9 pg (27.0-32.0); Mean Corpuscular Volume 89.2 fL (80-94); Mean Platelet Vol. 10.8 fl (6.2-12.0); Monocyte# 0.67 X10^3/uL; NRBC Flagged by Analyzer 0 % (0-5); Neutrophil # 4.42 X10^3/uL (2.7-7.7); Neutrophil % 65.9 % (47-70); Platelet Count 154 K/mm3 (150-450); RBC Distribution Width SD 44.6 fl (35.1-43.9); Red Blood Count 5.92 M/mm3 (4.6-6.2); White Blood Count 6.7 K/mm3 (4.4-11.0)
[2024-01-26 12:47] LABS: Vitamin B12 294 pg/mL (211-911)
[2024-01-26 13:21] LABS: AST(SGOT) 26 U/L (15-37); Alanine Aminotransfer ALT/SGPT 42 U/L (16-61); Albumin, Serum 3.6 g/dL (3.2-5.0); Alkaline Phosphatase 56 U/L (45-117); Anion Gap 8 (5-15); BUN 17 mg/dL (7-18); BUN/Creat Ratio 12.6 RATIO (10-20); Calcium,Total 9.1 mg/dL (8.5-10.1); Chloride 107 mmol/L (98-107); Creatinine, Serum 1.35 mg/dL (0.70-1.30); EST Glomerular Filtration Rate 57 mL/min (>60); Est Glom Filt Rate - Afr Amer 68 mL/min (>60); Globulin 3.5 g/dL (2.2-4.2); Glucose 122 mg/dL (74-106); Potassium 4.6 mmol/L (3.5-5.1); Protein, Total 7.1 g/dL (6.4-8.2); Sodium Level 139 mmol/L (136-145); T4 Free Direct 0.97 ng/dL (0.76-1.46); Thyroid Stim Hormone (TSH) 2.04 uIU/mL (0.358-3.74)
[2024-01-26 13:34] LABS: Hemoglobin A1c 5.8 % (3.8-5.6)
== END | disposition home or self-care (01) ==
LOC: BIMLAB 08:34
PROVIDERS: PCP Internal Medicine; Referring Provider Internal Medicine; Visit Provider Internal Medicine
DX: E66.01 Morbid (severe) obesity due to excess calories (principal); G62.9 Polyneuropathy, unspecified; I10 Essential (primary) hypertension; E78.2 Mixed hyperlipidemia
CPT/HCPCS: 36415; 80053; 82607; 83036; 84439; 84443; 85025

== ENCOUNTER → 2025-01-06 | Outpatient (CLI) | payer OTHER, SELFPAY ==
[2025-01-06 09:17] LABS: Absolute Lymphocyte Count 1.63 X10^3/uL (0.83-4.51); Absolute Neutrophil Count 5.7 X10^3/uL (2.0-7.7); Basophil# 0.09 X10^3/uL; Eosinophil# 0.41 X10^3/uL; Eosinophils% 4.7 % (0-5); Hematocrit 52.4 % (40-54); Hemoglobin 17.4 g/dL (13.0-16.5); Lymphocyte # 1.63 X10^3/ul (0.83-4.51); Lymphocyte % 18.8 % (19-41); Mean Corp Hgb Conc 33.2 g/dL (32-36); Mean Corpuscular Hgb 29.3 pg (27.0-32.0); Mean Corpuscular Volume 88.4 fL (80-94); Mean Platelet Vol. 10.6 fl (6.2-12.0); Monocyte# 0.76 X10^3/uL; Monocyte% 8.8 % (0-10); NRBC Flagged by Analyzer 0 % (0-5); Neutrophil # 5.69 X10^3/uL (2.7-7.7); Neutrophil % 65.9 % (47-70); Platelet Count 165 K/mm3 (150-450); RBC Distribution Width CV 13.9 % (11.6-14.6); RBC Distribution Width SD 44.4 fl (35.1-43.9); Red Blood Count 5.93 M/mm3 (4.6-6.2); White Blood Count 8.7 K/mm3 (4.4-11.0)
[2025-01-06 09:56] LABS: ALB/GLOB Ratio 1.5 RATIO (0.9-2.4); AST(SGOT) 26 U/L (<=37); Alanine Aminotransfer ALT/SGPT 28 U/L (<=46); Albumin, Serum 4.3 g/dL (3.4-4.8); Alkaline Phosphatase 68 U/L (40-129); Anion Gap 10 (5-15); BUN 13 mg/dL (4-19); BUN/Creat Ratio 10.2 RATIO (10-20); Calcium,Total 9.4 mg/dL (7.6-11.0); Carbon Dioxide 24.3 mmol/L (21.0-32.0); Chloride 105 mmol/L (98-108); Cholesterol 116 mg/dL (<=200); Creatinine, Serum 1.28 mg/dL (0.70-1.20); EST Glomerular Filtration Rate 62 (>60); Globulin 2.9 g/dL (2.2-4.2); Glucose 133 mg/dL (70-99); High Density Lipoprotein 30 mg/dL; Low Density Lipoprotein Calc. 37 mg/dL; Protein, Total 7.2 g/dL (5.9-8.4); Sodium Level 140 mmol/L (133-145); Total Bilirubin 0.76 mg/dL (0.00-1.30); Triglycerides 242 mg/dL; Very Low Density Lipoprotein 48 mg/dL (5-40); cholesterol:hdl ratio screen 3.83
== END | disposition home or self-care (01) ==
LOC: BIMLAB 08:16
PROVIDERS: PCP Internal Medicine; Referring Provider Internal Medicine; Visit Provider Internal Medicine
DX: I10 Essential (primary) hypertension (principal); N40.0 Benign prostatic hyperplasia without lower urinary tract symptoms; Z12.5 Encounter for screening for malignant neoplasm of prostate
CPT/HCPCS: 36415; 80053; 80061; 84153; 85025; G0103

== ENCOUNTER → 2025-02-13 | Outpatient (CLI) | payer OTHER, SELFPAY | END | disposition home or self-care (01) | LOC: SL 15:28 | PROVIDERS: PCP Internal Medicine; Referring Provider Internal Medicine; Visit Provider Internal Medicine | DX: G47.10 Hypersomnia, unspecified (principal) | CPT/HCPCS: 95806 ==